=== PATIENT | male | born 1970 | race American Indian/Alaskan Native ===

== ENCOUNTER 2017-08-16 14:05 | Inpatient (IN) | payer OTHER ==
[~2017-08-16] VITALS: Ht 175.3 cm; Wt 66.2 kg
--- NOTE | 2017-08-16 17:38 | NUR ---
PATINT GIVEN 10 MG IV VALIUM AT THIS TIME FOR A RASS OF +1. PATIENT PULLING AT IV SITES AND TRYING TO PULL THEM OUT, WELL TRYING TO PLACE THE DIFFERENT CORDS AND SP02 MONITOR "OVER ON THAT COUNTER OVER THERE." PATIENT RE-ORIENTED AND INFORMED OF REASONS WHY HE IS IN HOSPITAL, AND PLAN OF CARE. PT INFORMED THAT HE HAD A SEIZURE TODAY. PT IS SOMEWHAT TRUTHFUL WITH HOW MUCH ETOH HE DRINKS/DAY. PT'S GIRLFRIEND/EX-GIRLFRIEND STATES HE DRINKS ANYWHERE FROM 16-20 16 OZ BEERS/DAY. SHE STATES HE CALLED HER TODAY AND SAID HE WAS OUT OF MONEY AND BEER AND SHE KNEW HE NEEDED SOME. SHE PICKED HIM UP AND PROVIDE HIM WITH FOUR BEERS, WHICH HE DRANK. SHORTLY AFTER THIS IS WHEN HE HAD HIS SEIZURE. SP02 IS 95% ON ROOM AIR AT HIS TIME. PT IS VISIBLY SHAKY WITH HIS ARMS EXTENDED. MULTIPLE BRUISES NOTED TO PT'S ARMS AND BACK AREA. PT NOTED TO HAVE A LOW PLATELET COUNT ON LABS. CONTINUE TO MONITOR CLOSELY.
--- NOTE | 2017-08-16 18:26 | NUR ---
PT GIVEN 60 MG PHENOBARBITAL AT THIS TIME. PT STARTING TO DOZE OFF IN BED. PT STILL PULLING AT CLOTHING AND RAILING SOME BUT LESS THAN HE WAS EARLIER. CURRENTLY HIS RASS IS -1. HEART RATE 85, SP02 96% ON ROOM AIR. HOB AT 45 DEGREES. PT STARTED ON 40 MEQ POTASSIUM. 3 GM IV MAG FINISHED. D5 LR AT 125 ML/HR.
--- NOTE | 2017-08-16 19:55 | NUR ---
SHIFT REPORT RECEIVED FROM ATILIO HARRIS. PT IS CURRENTLY AWAKE, RN ASSISTED HIM TO USE URINAL, VOIDED 700ML. PT APPEARS ANXIOUS, IS PLAYING WITH CALL LIGHT AND REMOTE. ORIENTED TO SELF AND SURROUNDINGS. PRN VALIUM GIVEN FOR RASS+1. PT NOW WATCHING TV, APPEARS MORE AT EASE, WILL CONTINUE TO MONITOR.
--- NOTE | 2017-08-16 20:15 | NUR ---
PT REMAINS ANXIOUS, RASS +1, PRN VALIUM GIVEN. ASSESSMENT COMPLETED. PT IS CONFUSED TO EVENT AND DATE, BUT IS ORIENTED TO SELF AND SURROUNDINGS. DENIES PAIN AND NAUSEA. LUNGS SOUND CLEAR, SLIGHTLY DIM IN BASES, RA. HR REGULAR. BOWEL TONES ACTIVE. SKIN HAS SCATTERED BRUISES AND SCABS, APPEARS JAUNDICED. ARMS APPEAR SHAKY. IV PATENT, INFUSING WNL. PT IS WITHIN VIEW OF NURSES' STATION AND HAS CALL LIGHT IN HIS LAP. WARM BLANKET PROVIDED PER REQUEST, WILL CONTINUE TO MONITOR.
--- NOTE | 2017-08-16 21:35 | NUR ---
NOTICED THAT PT WAS STARTING TO MOVE AROUND IN BED AND PULLING OFF BLANKETS. ASKED PT IF HE NEEDED TO USE THE BATHROOM AND HE STATED YES. PT INCONTINENT OF URINE, WAS ABLE TO CATCH SOME OF IT IN URINAL. PT THEN MEDICATED WITH PRN VALIUM FOR RASS +1. PLACED [facility] PER ORDER AND THEN PT STATED "I HAVE TO GO TO THE BATHROOM" AGAIN. PT INCONTINENT AGAIN, CAUGHT SOME IN URINAL. ATTENDS AND CHUX PLACED UNDER PT. PT NOW APPEARS TP BE RESTING COMFORTABLY, WILL CONTINUE TO MONITOR.
--- NOTE | 2017-08-16 22:21 | NUR ---
PT HAD BEEN GIVEN SCHDULED VALIUM, HOWEVER HE STILL REMAINS ANXIOUS. ASSISTED PT TO USE URIANL, VOIDED 600ML. SPOKE TO DR. LENTZ WHO STATES HE WILL TAKE A LOOK AT THE ORDERS AND MAKE CHANGES.
--- NOTE | 2017-08-16 22:27 | NUR ---
PT REMAINS ANXIOUS RASS +1, PRN VALIUM GIVEN AT THIS TIME.
--- NOTE | 2017-08-16 22:49 | NUR ---
DR. LENTZ CHANGED SCHEDULED VALIUM TO 20MG IV Q4, IN TO ADMINSITER THIS, HOWEVER SINCE I HAD JUST GIVEN PRIOR PRN DOSE OF 10MG, I ONLY GAVE 10MG AT THIS TIME. DR. LENTZ ALSO CHANGED THE SCHEDULED PHENOBARBITOL TO 90MG Q4. ADMINISTERED AT THIS TIME. PT IN VIEW OF NURSES' STATION, WILL CONTINUE TO MONITOR.
--- NOTE | 2017-08-17 00:32 | NUR ---
PT HAD BEEN SLEEPING SOUNDLY, WOKE AND APPEARED AGITATED, PULLING OFF COVERS. ASSISTED HIM TO USE URINAL, HE HAD BEEN INCONTINENT OF LARGE AMOUNT OF URINE. ATTEMPTED TO PUT HIM ON BEDPAN BECAUSE HE STATED HE NEEDED TO HAVE BM, BUT HE DID NOT STAY ON IT MORE THAN 1 MINUTE AND WANTED IT GONE. PT RESISTS ASSISTANCE WHILE WE WERE CHANGING BED LINENS. RASS +2, 20MG PRN IV VALIUM ADMINISTERED. ASSESSMENT COMPLETED. NO OTHER CHANGES FROM PREVIOUS ASSESSMENT. PT THEN STATES HE NEEDS TO USE BATHROOM AGAIN, VOIDED 400ML INTO URINAL, BLADDER SCAN AFTER VOID SHOWED: 237ML. PT REMAINS AWAKE AND RETLESS. BED ALARM ON FOR SAFETY, WILL CONTINUE TO MONITOR.
--- NOTE | 2017-08-17 00:45 | NUR ---
AFTER 30 MINUTES SINCE LAST PRN DOSE, PT REMAINS RESTLESS WITH RASS+1. PT SQUIRMING IN BED AND PULLING AT GOWN AND SHEETS. 20MG PRN IV VALIUM ADMINISTERED.
--- NOTE | 2017-08-17 01:20 | NUR ---
PT REMAINS RESTLESS, PULLING ON SHEETS AND BED RAILS, 20MG PRN VALIUM ADMINISTERED AT THIS TIME.
--- NOTE | 2017-08-17 02:10 | NUR ---
IN TO GIVE 0200 PHENOBARBITOL AND VALIUM, NOTICED THAT IV IN RIGHT AC WAS LEAKING, D/C'D, CATHETER TIP INTACT. OPERATIONS OFFICER AFLOAT MALENA STARTED A NEW 20G IV IN RIGHT HAND, WE HAD TO HOLD ARM DOWN SO THAT PT WOULD STAY STILL, BUT OTHERWISE HE TOLERATED IT WELL. PT REMAINS RESTLESS, WILL CONTINUE TO MONITOR.
--- NOTE | 2017-08-17 02:44 | NUR ---
CALLED TO UPDATE DR. LENTZ ABOUT PT AND INFORM HIM THAT DESPITE MEDICATING PT, PT REMAINS RESTLESS. NEW ORDERS RECEIVED: 1. ONE TIME DOSE OF 40MG IV PHENOBARBITOL NOW. 2. 130MG IV PHENOBARBITOL Q1 PRN FOR RASS >0 3. INCREASE SCHEDULED PHENOBARBITOL FROM 90MG TO 130MG Q4. ORDER READ BACK AND VERIFIED BY DR. LENTZ.
--- NOTE | 2017-08-17 02:49 | NUR ---
PT INCONTINENT OF URINE, PERICARE AND NEW ATTENDS PROVIDED.
--- NOTE | 2017-08-17 03:40 | NUR ---
PRN 20MG IV VALIUM GIVEN FOR RASS SCORE OF +1. WILL CONTINUE TO MONITOR.
--- NOTE | 2017-08-17 03:59 | NUR ---
PT CURRENTLY SLEEPING, LIGHTLY SNORING. RR:20, HR:85, SPO2:94% ON RA. BED ALARM REMAINS ON FOR SAFETY, WILL CONTINUE TO MONITOR.
--- NOTE | 2017-08-17 04:47 | NUR ---
PT WOKE AT 0430 AND STARTED PULLING OFF BLANKETS AND PULLING ON BEDRAILS. PRN PHENOBARBITOL GIVEN FOR RASS OF +1. PT FOUND TO BE INCONTINENT OF LARGE AMOUNT OF URINE, BED LINEN CHANGED, LAURI- CARE DONE, NEW CHUX AND ATTENDS IN PLACE. AFTER MOVING PT IN BED HE APEARRED MORE AGITATED AND RESTLESS, RASS +2, PRN VALIUM GIVEN. SEIZURE PADS PLACED ON BED FOR SAFETY, BED ALARM REMAINS ON. WILL CONTINUE TO MONITOR.
--- NOTE | 2017-08-17 05:34 | NUR ---
PT WAS SLEEPING WELL UNTIL LAB CAME TO DRAW SAMPLE, THEN PT RESTLESS WITH RASS OF +1, SCHEDULED PHENOBARBITOL GIVEN NOW. WILL CONTINUE TO MONITOR.
--- NOTE | 2017-08-17 06:52 | NUR ---
PT SLEEPING, NO APPARENT DISTRESS. RR:19, SPO2 98% ON RA. HR:86.
--- NOTE | 2017-08-17 07:20 | NUR ---
REPORT RECEIVED FORM ATILIO CROFT. PATIENT'S ATTENDS CHANGED AT THIS TIME. PT HAD A VERY LARGE INCONTINENT VOID. U/S HERE TO PERFORM ABDOMINAL U/S. PT RASS IT +2 AND PRN VALIUM TO BE GIVEN.
--- NOTE | 2017-08-17 08:49 | NUR ---
PATIENT SLEEPING AT THIS TIME. RR EVEN AND UNLABORED. SP02 98% ON ROOM AIR AND RR 18. HR 84. SIDE RAILS UP FOR SAFETY AND SEIZURE PADS ON BED. BED IN LOW POSITION WITH BED ALARM ON. MONITORING PATIENT CLOSELY.
--- NOTE | 2017-08-17 09:23 | NUR ---
DR. LENTZ IN ROOM EVALUATING PATIENT. PATIENT CONTINUES TO SLEEP AT THIS TIME AND APPEARS CALM AND COMFORTABLE. NO CHANGES BEING MADE TO MEDICATION DOSES AT THIS TIME BUT WILL CONTINUE TO MONITOR CLOSELY. CONDOME CATHETER TO BE POTENTIALLY PLACED ON PATIENT.
--- NOTE | 2017-08-17 09:48 | NUR ---
CONDOM CATHETER PLACED AT THIS TIME. PT TOLERATED FAIR, AND WAS RESISTING NURSING STAFF QUITE A BIT. PT DUE FOR SCHEDULED MEDICATIONS. CONTINUE TO MONITOR. LARGE INCONTINENT VOID CHANGED.
--- NOTE | 2017-08-17 09:56 | NUR ---
PATIENT GIVEN SCHEDULED PHENOBARBITAL AT THIS TIME. PT IS DISORIENTED AND STATES HE IS AT "[facility]" AND THEN STATES HE IS AT "THE CLINIC." CONTINUE TO MONITOR CLOSELY.
--- NOTE | 2017-08-17 10:16 | NUR ---
SCHEDULED VALIUM GIVEN AT THIS TIME. PT PULLING AT MONITOR LEADS, PULLING AT BLANKETS AND TANGLING SELF IN BLANKETS. PT HALLUCINATING AND TALKING OUT LOUD WITH GARBLED TALK. SP02 99% ON ROOM AIR, RR 22. LAST BP 119/78. HEART RATE IN THE 70s. CONTINUE TO MONITOR.
--- NOTE | 2017-08-17 12:37 | NUR ---
PICC RN HERE TO PERFORM MIDLINE. PATIENT TOLERATED THIS FAIR, PRN PHENOBARBITAL GIVEN PRIOR TO MIDLINE BEING PLACED. PT REMAINS CONFUSED, HALLUCINATING AND GRABBING AT THINGS IN THE AIR THAT ARE NOT THERE. HEART RATE IN THE 70-80s, SP02 99% ON ROOM AIR. RR 17 AT THIS TIME. PT IS NOW RESTING WELL AND EVEN SNORING OCCASIONALLY. CONTINUE TO MONITOR.
--- NOTE | 2017-08-17 14:21 | NUR ---
PATIENT HAD STILL NOT VOIDED SINCE PLACING CONDOM CATHETER. PT BLADDER SCANNED SEVERAL TIMES FOR AROUND 556 ML. DURING SCANNING OF BLADDER, PT NOTED TO START VOIDING AND VOIDED APPROX 300 ML. WILL CONTINUE TO MONITOR FOR RETENTION. PT MORE AWAKE AND RESTLESS NOW AT THIS TIME. SCHEDULED PHENOBARBITAL GIVEN. PATIENT STATES, "I'M TRYING TO FIND MY UNDERWEAR" HE PULLS AT THE SIDE RAILS. PT NOTED TO BE ALSO GRABBING FOR THINGS IN THE AIR THAT AREN'T THERE AND PULLING AT CORDS. CONTINUE TO MONITOR CLOSELY.
--- NOTE | 2017-08-17 14:56 | NUR ---
PATIENT ADMITTED AT HIGH RISK FOR MALNUTRITION DUE TO POOR DIET DUE TO CHRONIC ETOH CONSUMPTION OF 18 16-OZ. BEERS DAILY. PATIENT'S BMI IS 22. PATIENT IS NPO, RECEIVING IV FLUIDS WITH D5 LR, THIAMINE, FOLIC ACID, AND MVI. LIVER ENZYMES ARE ELEVATED. PATIENT GOING THROUGH ETOH WITHDRAWL AND IS SEDATED. NO NUTRITION INTERVENTION APPROPRIATE AT THIS TIME. WILL CONTINUE TO MONITOR.
--- NOTE | 2017-08-17 16:01 | NUR ---
PATIENT GIVEN BED BATH AT THIS TIME. PT TOLERATED FAIR AND WAS VERY RESISTIVE TO BEING MOVED AROUND IN THE BED. PT'S WEIGHT TODAY IS 145.9 LBs. CONTINUE TO MONITOR CLOSELY.
--- NOTE | 2017-08-17 17:24 | NUR ---
PATIENT'S COUSIN LEXA CAME AND CHECKED ON PATIENT BUT DID NOT STAY MORE THAN FIVE MINUTES. PATIENT SLEEPING AT THIS TIME. CONTINUE TO MONITOR.
--- NOTE | 2017-08-17 19:13 | NUR ---
PATIENT GIVEN SCHEDULED 1800 DOSE OF PHENOBARBITAL AT THIS TIME. PT NOW AWAKE, BUT WAS NOT AWAKE AT 1800. PATIENT NOW SAYING "I NEED TO GO HOME AND CLEAN." PT NOTED TO BE PULLING MONITOR LEADS OFF OF CHEST. SP02 IS 100% ON ROOM AIR AT THIS TIME. LAST BP 107/78. PT NOTED TO HAVE VOIDED IN CONDOM CATHETER APPROX 200-300 ML. CONTINUE TO MONITOR CLOSELY. REPORT TO [employer] CUSTODIAN RNs.
--- NOTE | 2017-08-17 19:46 | NUR ---
REPORT RECIEVED FROM VIC TRIMBLE. PT RESTLESS DESPITE BEING GIVEN PHENOBAL. GIVEN 20MG VALIUM IV. PT DID C/O PAIN AT LT ARM SITE, SITE FLUSHES WELL BUT DID GIVE REMAINING DOSE AT MID LINE SITE STOPPING IVF WHILE VALIUM GIVEN. DID SWAB MOUTH BUT PT DID RESIST AT FIRST.
--- NOTE | 2017-08-17 21:28 | NUR ---
HAD BEEN RESTFUL, NOW RESTLESS AND PULLING AT THINGS, GIVEN 20MG VALIUM IV.
--- NOTE | 2017-08-17 23:55 | NUR ---
PT IS ASLEEP AND SNORING. SAT 98%.
--- NOTE | 2017-08-18 01:42 | NUR ---
PT NOW AWAKE AND RESTLESS, PULLING AT LINENS, RESISTING CARE. GIVEN 20MG VALIUM IV. DID COUGH VIGOROUSLY.
--- NOTE | 2017-08-18 02:51 | NUR ---
HAS BEEN MORE RESTFUL. ATTEMPTED ORAL CARE, PT STILL RESISTS. PT HAS VERY BAD BREATH.
--- NOTE | 2017-08-18 03:30 | NUR ---
HAS HAD SEVERAL EPISODES OF SLEEP APNEA. 02 2L NC APPLIED WITH GOOD EFFECT.
--- NOTE | 2017-08-18 04:39 | NUR ---
PT CONT TO SLEEP. 02 DEC TO 1L NC, SATS WERE 100% ON 2 L.
--- NOTE | 2017-08-18 06:14 | NUR ---
AWAKE, PLEASANT BUT STILL HALUCINATING AND CONFUSED. WAS SEEING DOGS IN ROOM. WILL OCC PICK AT COVERS. 02 OFF AND SATS 100% ON RA. ATTENDS CHANGED HAD LEAKED SMALL AMT URINE AROUND CONDOM CATH. PT RESISITS BEING TURNED, AND OTHER CARES.
--- NOTE | 2017-08-18 08:00 | NUR ---
PT WITH EYES OPENED BUT SLURRING HIS WORDS. PT COOPERATIVE WITH ORAL CARE AND IS CALM THIS MORNING. ASSESSMENT COMPLETED, RESTING AND WATCHING TV. LUNGS CLEAR WITH FEW COARSE SOUNDS IN LEFT BASE. SATS 100% ON RA. REDD HOSE IN PLACE BILAT.
--- NOTE | 2017-08-18 09:33 | NUR ---
PT PULLING AT PANCHAL CATHETER AND SLURRING HIS WORDS. MEDICATED WITH VALIUM 20 MG IV. NAILS CLEANED AND SPONGE BATH GIVEN, SHAMPOO CAP USED TO WASH HAIR, PT SHAVED AMD NINA WELL. PT RESTING ON RIGHT SIDE WITH PILLOW TO BACK. PT SLEEPING WITH HOB ELEVATED, DR. LENTZ IN TO ASSESS PT. BLADDER SCANNED D/T LOW URINE OUTPUT, 413 MLS URINE IN BLADDER. IVF DECREASED TO 85 MLS/HR PER DR. BEARD. FRIEND HERE FOR UPDATE ON PT.
--- NOTE | 2017-08-18 11:16 | NUR ---
PT PULLING ON MONITOR WIRES AND CONDOM CATH OFF. PT INCONT OF URINE, LINEN CHANGED AND ATTENDS IN PLACE. PT NON COMPLIANT FOR IV START. TWO FAILED ATTEMPS BY Angel WARE RN. 20 GAUGE INSERTED IN LEFT HAND BY Ronaldo MAKI RN. PT MEDICATED WITH PHENOBARBITAL 90 MG GIVEN IV AND ALSO VALIUM 15 MG IV. PT NOW RESTING WITH EYES CLOSED. HOB ELEVATED AND SATS 98% ON RA.
--- NOTE | 2017-08-18 12:12 | NUR ---
STARTED BY Ronaldo MAKI RN
--- NOTE | 2017-08-18 12:14 | NUR ---
PT REMAINS ASLEEP WITH HOB ELEVATED - REU, SATS 100% ON RA.
--- NOTE | 2017-08-18 13:40 | NUR ---
PT NOT AWAKE, HIS BRO SHADIA WAS JUST LEAVING AND ASKED FME TO PRAY FOR HIS BROTHER. HE MADE A COMMENT ABOUT ALCOHOL, WE BOTH AGREED IST CAN BE A DEMON. HE IS VERY CONCERNED FOR HIS BROTHER. I AGREED TO PRAY, AND HE SHOOK MY HAND AND THANKED ME. WILL FOLLOW NEEDED
--- NOTE | 2017-08-18 14:10 | NUR ---
PT SLEEPING - SATS 100% ON RA. I/O'S COMPLETED.
--- NOTE | 2017-08-18 14:57 | NUR ---
PT INCONT OF URINE. ATTENDS CHANGED AND PT ATTEMPTED TO USE URINAL BUT UNABLE TO AT THIS TIME.
--- NOTE | 2017-08-18 15:45 | NUR ---
PT ABLE TO VOID IN URINAL WITH ASSIST, VOIDED 350 MLS ORANGE COLORED URINE. PT PULLING AT COVERS AND TRYING TO GET LEGS OUT OF BED. MEDICATED WITH VALIUM 15 MG IV.
--- NOTE | 2017-08-18 17:00 | NUR ---
MONITOR DC'D. PATIENT IS W/O C/O.
--- NOTE | 2017-08-18 17:05 | NUR ---
PT RESTING WITH HOB ELEVATED, AWAKENS TO VOICE AND FOLLOWS SOME DIRECTIONS.
--- NOTE | 2017-08-18 17:27 | NUR ---
FAMILY MEMBERS IN TO VISIT WITH PT.
--- NOTE | 2017-08-18 18:05 | NUR ---
PT TRYING TO CRAWL OUT OF BED. OFFERED URINAL BUT REFUSED AT THIS TIME. MEDICATED WITH PHENOBARB 90 MG AND VALIUM 15MG IV. PT PULLED UP IN BED WITH 2 PERSON ASSIST AND HOB ELEVATED - KNEES ALSO ELEVATED. PT RESTING WITH EYES CLOSED.
--- NOTE | 2017-08-18 19:47 | NUR ---
REPORT RECIEVED FROM DAY SHIFT. PT CURRENTLY SLEEPING/SEDATED. DID NOT AWAKEN WHEN PUPILS CHECKED, OTHERWISE ALSO DID NOT TRY TO AWAKEN PT. ATTENDS DRY.
--- NOTE | 2017-08-18 22:09 | NUR ---
BECAME AGITATED AFTER BEING TURNED. PT HAD VOIDED BUT WAS CLENCHING WET ATTENDS. GIVEN SCHEDULED PHENOBARBITAL AND PT WAS CHANGED. CONT TO BE AGITATED AND GIVEN 15MG VALIUM IV. NOW QUIETER.
--- NOTE | 2017-08-18 23:03 | NUR ---
CONT TO BE RESTLESS, PULLING AT COVERS AND TALKING. CONT TO HALUCINATE. GIVEN 15MG VALIUM IV.
--- NOTE | 2017-08-19 00:08 | NUR ---
IS NOW SLEEPING.
--- NOTE | 2017-08-19 02:30 | NUR ---
PT RESTLESS, INC OF URINE. WAS GIVEN PHENOBARB PRIOR TO ATTENDS BEING CHANGED. PT RESISTS TURNING VERY STRONGLY. AFTERWARD PT WAS A LITTLE MORE COOPERATIVE, WAS ABLE TO TAKE SMALL SIP WATER. THEN BECAME RESTLESS PULLING AT GOWN. GIVEN 15MG VALIUM IV. DID C/O BURNING WITH URINATION WHEN URGED TO USE URINAL.
--- NOTE | 2017-08-19 04:26 | NUR ---
SLEEPING AT THIS TIME.
--- NOTE | 2017-08-19 06:33 | NUR ---
PT RESTLESS, INC OF URINE BUT DID VOID MORE IN URINAL. BED CHANGED, PT NOT RESISTIVE BUT IS STILL VERY CONFUSED.
--- NOTE | 2017-08-19 07:59 | NUR ---
IV SITE IN LEFT HAND PAINFUL WHEN FLUSHING, DC'D WITH CATH INTACT.
--- NOTE | 2017-08-19 08:50 | NUR ---
PT SLEEPING THIS A.M. AND DR. LENTZ IN TO ASSESS PT. PT RESTING AND AWAKENS ON HIS OWN. ASSESSMENT COMPLETED. CONTINUE TO REORIENT PT. STATES HE'S AT HIS FRIENDS HOUSE. PT ALSO STATES "I HAVE ANXIETY AND I TAKE SOMETHING FOR IT", WHEN ASKED IF HE NEEDS SOMETHING NOW HE STATES "NO". WHEN ASKED IF HE WILL LET ME KNOW WHEN HE NEEDS SOMETHING HE STATES "YES". PT FALLS ASLEEP EASILY.
--- NOTE | 2017-08-19 10:12 | NUR ---
PT BP IS LOW, RN IS AWARE. PT IS SLEEPING AT THIS TIME. CALL LIGHT IS IN REACH.
--- NOTE | 2017-08-19 10:20 | NUR ---
DR LENTZ NOTIFIED OF SOFT BP'S 83-87/51-56, MAP 59-62. HR 80'S. RR NONLABORED SATS 95% ON RA, PATIENT IN NO DISTRESS. ORDER FOR NS 250CC IV BOLUS.
--- NOTE | 2017-08-19 10:27 | NUR ---
NS 250CC IV BOLUS INFUSING WITHOUT DIFFICULTY. PATIENT SLEEPING QUIETLY, NO DISTRESS.
--- NOTE | 2017-08-19 10:37 | NUR ---
NS 250CC BOLUS INFUSED. BP 90/54 (52) WILL CONT TO MONITOR. UPDATE TO BRANDIE TRIMBLE.
--- NOTE | 2017-08-19 11:03 | NUR ---
PT SLEEPING AND SATS DECREASED TO 77% ON RA. CPAP PLACED ON PT, SATS NOW 98%. R.T. NOTIFIED.
--- NOTE | 2017-08-19 12:47 | NUR ---
PT RESTING IN BED QUIETLY ON BIPAP. OXYGEN SATURATION 99%. PT REPOSITIONS EXTREMITIES SLIGHTLY. NO AGGITATION AT THIS TIME.
--- NOTE | 2017-08-19 13:53 | NUR ---
PT SLEEPING AT 1200, ASSESSMENT COMPLETED. REMAINS ON BIPAP, RESTING WELL.
--- NOTE | 2017-08-19 13:56 | NUR ---
BIPAP OFF AT THIS TIME. BLADDER SCANNED FOR OVER 500 MLS. PT STATES NOT HAVING TO PEE YET.
--- NOTE | 2017-08-19 14:20 | NUR ---
PT WANTED TO STAND TO VOID. TRIED TO SIT PT ON EDGE OF THE BED BUT PT UNABLE TO SIT UP STRAIGHT. PT BACK TO BED AND WAS ABLE TO VOID 450 MLS ORANGE COLORED URINE AND IS RESTING WITH HOB ELEVATED.
--- NOTE | 2017-08-19 14:26 | NUR ---
PT ASLEEP ON C-PAP. HIS BROTHER REQUESTED I PRAY FOR PT DAILY. I ENTERED THE , VOICED A SILENT PRAYER FOR PT. WILL CONTINUE TO FOLLOW
--- NOTE | 2017-08-19 15:37 | NUR ---
PT SLEEPING WITH SATS 97% ON RA. RESP 20
--- NOTE | 2017-08-19 19:30 | NUR ---
REPORT RECEIVED RACHELL DIEGO RN. PT RESTING INBED, RESP EVEN AND UNLABORED.
--- NOTE | 2017-08-19 20:15 | NUR ---
PT HAS GROWN RESTLESS AND AGITATED, PULLING AT MONITOR CORDS AND IV LINE. ASSESSMENT DONE, 10 MG IV VALIUM GIVEN.
--- NOTE | 2017-08-19 21:31 | NUR ---
PT HAS BEEN PULLING SEIZURE PADS OFF RAILS, PULLING AT IV TUBING AND MONITOR CORDS. CHEWING ON MONITOR CORD "WOW THIS IS REALLY CHEWY". WHEN ASKED HE STATES HE IS AT HIS DADS HOUSE, ASKED WHERE HES GOING PT STATES "RUTH GOT TO GET UP TO PAINT THIS HOUSE". 10MG IV VALIUM GIVEN FOR RESTLESSNESS.
--- NOTE | 2017-08-20 00:03 | NUR ---
PT PULLING AT LEADS AND IV TUBING, PUT PT IN SCRUB TOP, INC LG AMOUNT OF URINE LAURI CARE DONE AND LINEN CHANGED AND PT REPOSITIONED UP IN BED. 10MG IV VALIUM GIVEN.
--- NOTE | 2017-08-20 01:30 | NUR ---
PT HAS BEEN RESTLESS AND PUTLLING AT LINES AND IV TUBING, ATTEMPTING TO BITE THEM AT THIS. HAS BEEN REQUIRING PRN VALIUM APPROX EVERY ONE TO TWO HOURS. INC URINE, CHANGED, LAURI CARE DONE AND PT REPOSITIONED UP IN ED.
--- NOTE | 2017-08-20 03:07 | NUR ---
PT CALM AND RESTING IN BED, RR 80'S.
--- NOTE | 2017-08-20 11:07 | NUR ---
PT HAD BEEN VERY RESTLESS AND WANTING TO GET UP AND GO HAVE A BEER AND GO TAKE A SHOWER. PT WAS TRYING TO SQUARM OUT OF THE BED BUT WAS UNABLE TO COMPLETE THE TASK THIS AM. PT SAT TO THE EDGE OF THE BED WAS UNSTEADY YO GET HIS BALANCE, BUT ONCE OBTAINED HE WAS ABLE TO GET OUT OF BED TO THE CHAIR. PT IS LESS RESTLESS IN THE CHAIR AT THIS TIME.
--- NOTE | 2017-08-20 12:20 | NUR ---
PT REMAINS UP IN THE CHAIR, BECOMING RESTLESS AND PULLING AT THE BLANKETS AT THIS TIME. FREFERNANDO INTO SEE HIM AT THIS TIME.
--- NOTE | 2017-08-20 14:13 | NUR ---
PT REMAINS UP IN THE CHAIR, ATTENDS CHACKED AND PT REMAINS DRY AT THIS TIME.
--- NOTE | 2017-08-20 14:19 | NUR ---
MET WITH PT'S KANU AND NORI. THEY CAME FOR LUNCH, AND THEN PLAN ON VISITING PT. I REMINDED HIM THAT HE ASKED ME TO PRAY FOR PT EVERYDAY, WHICH I HAVE AND KANU RENO THANKED ME. WILL CONTINUE TO FOLLOW NEEDED
--- NOTE | 2017-08-20 14:29 | NUR ---
CARE CONFERENCE PT IS SLEEPING SITTING UP IN THE CHAIR. VIELKA BELTRÁN RN (PRIMARY NURSE) MYSELF CASE MANAGEMENT PRESENT. PT CONT TO BE AGGITATED WHEN AWAKE, HE WANTS A BEER AND SOME WHISKEY. STILL HAVING TREMORS BUT THEY ARE GRADUALLY IMPROVING. DR LENTZ DID WRITE FOR CLEAR LIQ. PT STILL NEEDING IV BENZODIAZEPINES AND BARBITURATES. WILL CONT TO FOLLOW PT DURING HIS STAY IN THE HOSPITAL.
--- NOTE | 2017-08-20 14:37 | NUR ---
PT BP LOW DR LENTZ HERE IN DEPARTMENT NEW ORDERS RECEIVED STARTED 500 LITER NS BOULS AT THIS TIME.
--- NOTE | 2017-08-20 14:41 | NUR ---
PT STATED HE HAD TO VOID, BUT PT IS NOT ABLE TO VOID AT THIS TIME, PULLING AT ATTENDS AND FUSSING WITH MONITOR CORDS.
--- NOTE | 2017-08-20 14:50 | NUR ---
PT AWAKE AND NOW PULLING AND FUSSYING WITH BLANKETS AND LINES.
--- NOTE | 2017-08-20 15:00 | NUR ---
PT BACK TO BED AT THIS TIME TWO PERSON ASSISTANCE, BED ALARM AND SIDE RAIL X4, WITH SEZIURES PADS INPLACE.
--- NOTE | 2017-08-20 16:29 | NUR ---
PT RAMINS IN BED ASLEEP AT THIS TIME APPEARS COMFORTABLE AT THIS TIME.
--- NOTE | 2017-08-20 18:36 | NUR ---
PT AWAKEN FOR DINNER, PT WAS FEED AND HE DID WELL. FAMILY AT THE BEDSIDE. PT AWAKE AND VISITING WITH THEM. TALKING AND JOKING WITH THEM.
--- NOTE | 2017-08-20 19:40 | NUR ---
REPORT RECEIVED FROM VIELKA TRIMBLE. PT IS RESTING IN BED, ASLEEP WITH RESP EVEN AND UNLABORED. HR 70'S, RR 16.
--- NOTE | 2017-08-20 20:12 | NUR ---
PT AWAKENS WITH STERNAL RUB FROM RT PARISA, PT IS DROWSY, ABLE TO STAY AWAKE WITH EYES OPEN. PT IS NOT ORIENTED TO PLACE, DATE, OR EVENT. PT IS ASKING WHERE HIS SISTER TRINO IS. FINE HAND TREMORS PRESENT. LUNGS CLEAR, DIMINISHED THROUGHOUT ALL LOBES, SPO2 100% ON ROOM AIR. PT REFUSES CPAP. BANANNA BAG INFUSING MIDLINE WNL AT 85 ML/HR. ATTENDS IN PLACE, PT DENIES NEED TO USE RESTROOM AT THIS TIME. BED ALARM IS SET. CURTAIN OPEN FOR VIEW FROM NURSES STATION.
--- NOTE | 2017-08-20 20:30 | NUR ---
IN PT ROOM TO CHANGE ATTENDS W CHRISTINE PAN AND RN FANG ASSIST. PT IS INCOMPREHENSIBLE WHEN ASKED ORIENTATION QUESTIONS, AWAKE, DROWSY. PT DOES NOT FOLLOW COMMANDS WELL, RESISTS TURNING WHEN CHANGING ATTENDS. PT HAD LARGE UNMEASURED INCONTINENT VOID. BED ALARM SET, IVF INFUSING, PT ON ROOM AIR, WITH CURTAIN OPEN FOR CLOSE MONITORING FROM NURSES STATION FOR SAFETY.
--- NOTE | 2017-08-20 21:20 | NUR ---
PT SLEEPING AT THIS TIME, EYES CLOSED, BREATHING NON-LABORED, RR 15, SPO2 95% ON ROOM AIR. BED ALARM SET.
--- NOTE | 2017-08-20 21:59 | NUR ---
PT AWAKE AT THIS TIME, CONTINUES TO BE DROWSY AND INCOMPREHENSIBLE. PT DOES NOT APPROPRIATELY ANSWER OTHER QUESTIONS OTHER THAN NAME AND OR FOLLOW COMMANDS. PT LYING IN BED AT THIS TIME, MOVING FINGERS OVER ATTENDS MATERIAL, BED ALARM REMAINS IN PLACE. MID LINE FLUSHED WNL, BLOOD RETURN. CURTAIN OPEN FOR CLOSE MONITORING.
--- NOTE | 2017-08-20 22:23 | NUR ---
IN PT ROOM WITH CHRISTINE PAN, CHANGED ATTENDS, PT SATURATED CHUX AND ATTENDS. PT NOT FOLLOWING COMMANDS AT THIS TIME, LAUGHING, STATES "THERES PINK HATS OVER THERE". ORIENTED PT TO ROOM. BED ALARM SET, PT GIVEN WARM BLANKET.
--- NOTE | 2017-08-20 22:50 | NUR ---
PTS LEGS OVER SIDE RAIL, ATTENDS SATURATED, CHANGED ATTENDS AND CHUX WITH CHRISTINE PAN. PT IS AWAKE, DROWSY, REACHING DOWN ATTENDS, NOT FOLLOWING COMMANDS. BED ALARM SET, LIGHTS OFF IN ROOM. PTS EYES CLOSED NURSING STAFF EXITS ROOM.
--- NOTE | 2017-08-20 23:20 | NUR ---
IV PUMP BEEPING IN PT ROOM, PT SLEEPING, AWAKENS TO RN VOICE, INSTRUCTED PT TO STRAIGHTEN RIGHT ARM, PT DOES NOT FOLLOW COMMAND, MANUALLY STRAIGHTENED ARM. PTS LUNGS CLEAR THROUGHOUT ALL LOBES, BOWEL TONES ACTIVE. PT SPEECH INCOMPREHENSIBLE, ORIENTED ONLY TO PERSON. BED ALARM SET, LIGHTS OFF IN ROOM, IVF INFUSING MIDLINE WNL.
--- NOTE | 2017-08-21 01:00 | NUR ---
PT CALLING OUT "BATHROOM", IN PT ROOM, PT STATES HE DOES NOT HAVE TO GO TO RESTROOM, ATTENDS DRY. PT NOT ORIENTED TO PLACE, EVENT, STATING RN FANG WORKS AT [employer], AND HAS A LOT OF ELECTRONICS IN HERE. BED ALARM SET, LIGHTS OFF IN ROOM. IVF W K INFUSING.
--- NOTE | 2017-08-21 02:11 | NUR ---
CHECKED ON PT, PT SLEEPING EYES CLOSED, RR 17, BREATHING NON-LABORED, LIGHTS OFF IN ROOM, BED ALARM SET.
--- NOTE | 2017-08-21 04:03 | NUR ---
PT AWAKE, DROWSY, HAS BOTH LEGS OVER SIDE RAILING. PT WORDS INCOMPREHENSIBLE, NOT APPROPRIATELY CONVERSING. 3 RN AND ONE BARTENDER ASSIST TO STAND PT WITH MAX ASSIST TO CHANGE SATURATED SCRUB TOP, LINENS, AND ATTENDS. PT NOT ABLE TO FOLLOW COMMANDS TO DRESS OR STAND. PT LYING IN BED, IVF INFUSING WNL, BED ALARM SET.
--- NOTE | 2017-08-21 04:56 | NUR ---
PT SLEEPING, AWAKENS WITH RN TOUCH AND BACK TO SLEEP, DROWSY, BREATHING NON-LABORED, RR 16, HR 77. LUNGS CLEAR, DIMINISHED THROUGHOUT ALL LOBES, HR RHYTHM REGULAR, ABDOMEN SOFT, NON-DISTENDED, BOWEL TONES ACTIVE X 4. PT APPEARS COMFORTABLE, NOT MOVING AROUND IN BED. BED ALARM IN PLACE, LIGHTS OFF IN ROOM, IVF INFUSING MIDLINE WNL.
--- NOTE | 2017-08-21 06:17 | NUR ---
PT IN BED THROUGHOUT SHIFT, ORIENTED ONLY TO SELF AND . PT SPEECH NOT COMPREHENSIBLE, UNABLE TO FOLLOW COMMANDS. PT VERY WEAK, REQUIRING MAX 2 PERSON ASSIST TO STAND. CONTINUES TO BE INCONTINENT OF URINE THROUGHOUT SHIFT, ATTEND AND CHUX IN PLACE W MULTIPLE LARGE VOIDS. BED ALARM IN PLACE THROUGHOUT SHIFT. MIDLINE HAS GOOD BLOOD RETURN AND FLUSHES WELL, IVF INFUSING WNL.
--- NOTE | 2017-08-21 08:29 | NUR ---
PT ASLEEP AT THIS TIME, STTENDS IS DRY AT THIS TIME, PT REPOSITIONED AT THIS BKF ORDERED AT THIS TIME.
--- NOTE | 2017-08-21 09:07 | NUR ---
PT CONTIOUES TO SLEEP TRIED TO WAKE HIM UP WASHED HIS FACE AND THEN HE TELLS ME TO "LET ME SLEEP" CURRENTLY PT IS ASLEEP WITH FAMILY AND FREINDS AT THE BEDSIDE.
--- NOTE | 2017-08-21 10:14 | NUR ---
PT AWAKE AT THIS TIME, FEED BKF, [facility] TALKING WITH STAFF AND FAMILY
--- NOTE | 2017-08-21 11:07 | NUR ---
PT TALKING WITH FAMILY AT THIS TIME. HE DOES MAKE SOME SINCE WHEN TALKING, BUT AT TIMES HE IS TALKING IN CIRCLES.
--- NOTE | 2017-08-21 11:53 | NUR ---
PT WAS TRANSFERED FROM BED TO SHOWER CHAIR VIA TWO PERSON ASSISTANCE, PT WAS THEN SHOWERED. PT THEN RETURNED TO ROOM AND TRANSFERED TO CHAIR AGAIN WITH A TWO PERSON ASSISTANCE. PT BRUSHED HIS OWN TEETH WITH VERBAL CUES. PT IS SITTING UP IN CHCAIR SAFELY WITH CALL LIGHT IN REACH. LINENS WERE CHANGED
--- NOTE | 2017-08-21 12:03 | NUR ---
PT WENT TO THE OWER AND [facility]. PT UP TO THE CHAIR AT THIS TIME, LUNCH ORDERED AT THIS TIME. PT BRUSHED HIS OWN TEETH WITH SOME BLOOD NOTED WITH BRUSHING. DRY ATTENDS INPLACE AT THIS TIME. BEDSIDE TRAY INPLACE TO HELP KEEP PT IN CHAIR, WITH CHAIR ALARM INPLACE.
--- NOTE | 2017-08-21 12:07 | NUR ---
PT APPEARS TO BE ASLEEP AT THIS TIME IN THE CHAIR.
--- NOTE | 2017-08-21 12:47 | NUR ---
PT GIVEN PO MEDS AND DID WELL TAKING THEM AT THIS TIME, TALKING CLEARER AT THIS TIME.
--- NOTE | 2017-08-21 13:39 | NUR ---
PT WAS FEED LUNCH ATE WELL, PT STILL UNABLE TO FEED SELF AT THIS TIME. HAND TO MOUTH CORDATION IS NOT GOOD AT THIS TIME.
--- NOTE | 2017-08-21 14:07 | NUR ---
MET WITH PT FOR THE FIRST TIME TODAY. SITTING IN CHAIR, HE SMILED. NOT YET TOO ALERT OR ORIENTED. RESPONSES TO QUESTIONS ARE SLOW, BUT DELIBERATE. OFFERED HIM DEPT BLANKET HE SAID THAT WOULD BE NICE. HE SEEMED TO BE VERY PLEASED. I TOLD HIM I HAD BEEN PRAYING FOR HIM, HE SMILED. I EXTENDED A BLESSING, WILL CONTINUE TO FOLLOW NEEDED
--- NOTE | 2017-08-21 18:24 | NUR ---
PT TRYED TO STAND TO VOID, BUT UNABLE TO STAND WITH STAFF HELPS VERY UNSTEADY, PT BACK TO THE CHAIR VOIDED IN URINAL AND THEN SAT UP TO EAT DINNER. PT FEEDING SELF WITH HELP FROM NIKOLAS AT TIMES.
--- NOTE | 2017-08-21 19:32 | NUR ---
REPORT RECEIVED FROM VIELKA TRIMBLE. PT IS LYING IN BED WITH EYES CLOSED, RESTFUL, RESP EVEN AND UNLABORED. AWAITING TRANSFER TO MED SURG FLOOR. IN VIEW OF NURSES STATION, BED ALARM ON.
--- NOTE | 2017-08-21 19:40 | NUR ---
REPORT RECEIVED FROM ATILIO HEADLEY IN CCU VIA TELEPHONE. PT TO ARRIVE TO MED SURG VIA HOSPITAL BED, ASSISTANT TO THE PRESIDENT TO BRING PT OVER TO FLOOR.
--- NOTE | 2017-08-21 20:01 | NUR ---
PT TRANSFERRED TO MED SURG FLOOR WITH CHARGE NURSE AND BENCH LATHE OPERATOR, REPORT GIVEN TO EMILEE TRIMBLE. VSS.
--- NOTE | 2017-08-21 20:05 | NUR ---
PATIENT MOVED FROM CCU VIA HOSPITAL BED. PATIENTS BELONGINGS MOVED WITH PATIENT. REPORT TAKEN BY EMILEE TRIMBLE. PATIENT DID NOT AWAKEN DURING TRANSFER. PATIENTS VITALS ARE STABLE. PATIENTS BED ALARM PLACED ON FOR SAFETY. CALL LIGHT IN REACH.
--- NOTE | 2017-08-21 20:22 | NUR ---
PT ARRIVES TO MED SURG FLOOR AT 1950 VIA HOSPITAL BED. PT SLEEPING, AWAKENS TO RN VOICE. PT IS DROWSY, OPENS EYES SLIGHTLY. PERRL. PT IS ORIENTED TO PERSON, , AND YEAR. PT STATES HES "IN MY BEDROOM". REORIENTED PT TO EVENT, DATE, AND TIME. PTS LUNGS CLEAR THROUGHOUT ALL LOBES, HR REGULAR. PT WEAK BILATERALLY UPPER AND LOWER EXTREMITIES. DENIES PAIN. PT NOT ABLE TO ANSWER REGARDING WHETHER HE ATE TODAY, DENIES HUNGER. BED ALARM SET, CALL LIGHT IN REACH. IVF INFUSING WNL IN MIDLINE, LINE FLUSHES WELL, GOOD BLOOD RETURN.
--- NOTE | 2017-08-21 22:15 | NUR ---
PT LYING IN BED, TALKING TO SELF, WORDS INCOMPREHENSIBLE, BED ALARM SET, IVF INSUING. CURTAIN OPEN FOR CLOSE VIEW FROM NURSES STATION.
--- NOTE | 2017-08-22 | NUR ---
IN PT ROOM, PT'S LEGS OVER SIDE RAILS. PT INCONTINENT OF URINE, BED SATURATED, LINENS, GOWN, AND ATTENDS CHANGED. PT IS AWAKE, FLAT AFFECT, NOT ORIENTED TO PLACE, SITUATION, TIME. PT REQUESTING TO BRUSH TEETH. GUMS BLEEDING WITH BRUSHING. IV TUBING RIPPED APART BY PT. NEW IV TUBING INFUSING AT THIS TIME, MIDLINE HAS GOOD BLOOD RETURN, FLUSHES WELL. PT TRYING TO GET OUT OF BED, REQUESTING TO WASH FACE. PT ABLE TO SIT UP IN BED, WEAK. ASSISTED PT W 3PA TO RESTROOM, GAIT UNSTEADY WITH FWW AND MAX ASSIST. PT BACK TO BED AT THIS TIME. BED ALARM SET.
--- NOTE | 2017-08-22 01:38 | NUR ---
PT SLEEPING, BREATHING NON-LABORED, RR 18. LIGHTS OFF IN ROOM. BED ALARM ON.
--- NOTE | 2017-08-22 03:24 | NUR ---
PT SLEEPING AT THIS TIME, EYES CLOSED, VISIBLE CHEST RISE, PT COUGHING OCCASIONALLY, DRY COUGH. CURTAIN OPEN FOR VIEW FROM NURSES STATION, BED ALARM SET.
--- NOTE | 2017-08-22 04:30 | NUR ---
IN PT ROOM TO CHECK ON PT, PT SOAKED WITH URINE THROUGH ATTENDS AND TWO LAURI PADS ONTO CHUX. CHANGED CHUX, DRAW SHEET, AND CLEANED PT. ATTENDS AND LAURI PADS IN PLACE, PT PULLING AT ATTENDS. ASSESSMENT COMPLETE. LUNGS CLEAR, DIMINISHED THROUGHOUT. PT DOES NOT FOLLOW COMMANDS, RESISTING STRAIGHTENING ARM, ARM BOARD IN PLACE FOR IV INFUSION. BED ALARM SET. LIGHTS OFF IN ROOM.
--- NOTE | 2017-08-22 06:00 | NUR ---
PT ATTEMPTING TO CRAWL OUT OF BED, LEGS THROUGH SIDE RAIL. BED, LINENS, AND ATTENDS SATURATED WITH URINE. RN DIEGO ASSIST TO CHANGE PTS LINEN, BED BATH COMPLETE. ATTENDS WITH TWO LAURI PADS AND TWO CHUX UNDER PT. PT GIVEN WARM BLANKET. MIDLINE SITE WNL. BED ALARM SET, CALL LIGHT IN REACH.
--- NOTE | 2017-08-22 06:14 | NUR ---
VITALS AND I&OS DONE AND CHARTED. BEDSIDE TABLE AND CALL LIGHT WITHIN REACH.
--- NOTE | 2017-08-22 06:45 | NUR ---
ATTEMPTED TO AMBULATE THIS SHIFT, REQUIRING 3-4 PERSON MAX ASSIST, PT WEAK ON FEET, DOES NOT FOLLOW COMMANDS WELL. PT IS DROWSY, SLEEPING THROUGHOUT SHIFT, CONTINUES TO PULL ON ATTENDS, RIPPED IV CORD APART, INCONTINENT OF URINE X 4 FOR LARGE VOIDS SATURATING ENTIRE BED. PT BRUSHED TEETH INDEPENDENTLY AT START OF SHIFT WITH BLEEDING. MIDLINE IN PLACE, GOOD BLOOD RETURN FLUSHES WELL. SPEECH INCOMPREHENSIBLE, NOT ORIENTED TO DATE, EVENT, PLACE.
--- NOTE | 2017-08-22 07:43 | NUR ---
PATIENT IN BED ASLEEP. WHITEBOARD UPDATED.
--- NOTE | 2017-08-22 09:09 | NUR ---
bedside report received from Miguelina TRIMBLE. all questions answered. pt sleeping heavily now. will attempt to give morning meds. CNAs report giving him oral care and a bed bath this morning. pt snoring at this time.
--- NOTE | 2017-08-22 09:22 | NUR ---
PT ONLY ORIENTED TO SELF. ABLE TO SWALLOW WATER WITH MAGNESIUM SUPPLEMENT. IVF BAG CHANGED. INFUSING AT 50ML/HR. AWAKENED TO STERNAL RUB. FOUL ODOR NOTED IN ROOM. LIKELY FROM BREATH. UNABLE TO IDENTIFY SOURCE. PT SLEEPING NOW. BOWEL TONES ACTIVE.
--- NOTE | 2017-08-22 09:49 | NUR ---
VITALS AND I AN O DONE
--- NOTE | 2017-08-22 11:20 | NUR ---
TRANSFERRED PT TO BSC. INCONTINENT OF URINE. ATTENDS CHANGED. 3PA. PATIENT VERY "FLOPPY" IN MOTOR MOVEMENTS. UNABLE TO URINATE MORE INTO COMMODE. LINENS CHANGED. SCAB NOTED ON RIGHT KNEE. OLD, HEALING ABRASION.
--- NOTE | 2017-08-22 11:58 | NUR ---
worked with physical therapy. 2PA with fww. able to follow commands. some difficulty with motor function. tolerated therapy well. oriented to month, president, self, and place.
--- NOTE | 2017-08-22 16:09 | NUR ---
PT INCONTINENT OF URINE. NO BM. CHANGED ATTEND AND CHUX.
--- NOTE | 2017-08-22 17:37 | NUR ---
pt depth perception impaired. attempts to scoop food from bowl and is aiming several inches to right of bowl. pt sitting up eating in bed now.
--- NOTE | 2017-08-22 17:48 | NUR ---
PT SLEEPY TODAY. ORIENTED TO SELF, , AND PLACE (SOMETIMES). REDD HOSE. 2PA HEAVY. VERY UNSTEADY. BALANCE AND DEPTH PERCEPTION IMPAIRED. NO BM SINCE ADMISSION. D5LR + 20KCL @ 50 IN MIDLINE ERIKA. EATING DINNER WELL. PHYSICAL THERAPY WORKED WITH HIM TODAY.
--- NOTE | 2017-08-22 18:14 | NUR ---
BP LOW. HOSPITALIST NOTIFIED. MANUAL BP 80/50. ORDERS TO INCREASE IVF TO 75ML/HR AND GIVE 500ML LR BOLUS. INFUSING BOLUS NOW.
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
--- NOTE | 2017-08-22 22:21 | NUR ---
ANSWERED CALL LIGHT, PT REQUESTING CPAP MASK BE REMOVED. PT ASKING HOW MUCH THE MACHINES COST, INFORMED PT THAT WE WILL LOOK INTO THAT FOR HIM. LIGHTS ON IN ROOM REQUESTED, CALL LIGHT IN REACH.
--- NOTE | 2017-08-22 22:30 | NUR ---
DR. LENTZ NOTIFIED VIA TELEPHONE RE BP 97/68 MAP 74. NOTIFIED THAT NIO FOR BOWEL PREP IN PLACE, AND ORIENTATION OF PT. DR. LENTZ STATED TO CONTINUE IVF AT 75ML/HR.
--- NOTE | 2017-08-22 23:02 | NUR ---
IN PT ROOM TO ADMINISTER LAXATIVE, PT ABLE TO DRINK 200 ML INSTRUCTED, FOLLOWING COMMANDS WELL. PT QUESTIONING ALCOHOL WITHDRAWAL PROCESS AND WHEN THE HOSPITAL STARTED CARING FOR PT'S WITHDRAWING, EDUCATION PROVIDED. PT SITTING UP IN BED, REQUESTED MILK. BROUGHT FRESH ICE WATER WELL. CALL LIGHT GIVEN TO PT.
--- NOTE | 2017-08-23 00:33 | NUR ---
VITALS AND I&OS DONE AND CHARTED. HELPED RN CHANGE HIS ATTENDS. GOT HIM COMFORTABLE IN HIS BED. PT WANTED NOTHING ELSE AT THAT TIME. BEDSIDE TABLE AND CALL LIGHT WITHIN REACH.
--- NOTE | 2017-08-23 01:37 | NUR ---
PT SLEEPING AT THIS TIME, EYES CLOSED, BREATHING NON-LABORED, LIGHTS OFF IN ROOM. CURTAIN OPEN FOR VIEW FROM NURSES STATION, BED ALARM SET.
--- NOTE | 2017-08-23 02:25 | NUR ---
IN PT ROOM, ASSESSED ATTENDS, ATTENDS DRY AT THIS TIME. ASSISTED PT TO BOOST UP IN BED WITH CHRISTINE PAN. PT HAS NO ADDITIONAL REQUESTS. LIGHTS OFF IN ROOM. BED ALARM SET.
--- NOTE | 2017-08-23 04:08 | NUR ---
CHANGED PT'S ATTENDS WITH ASSISTANCE FROM ATILIO CHAVEZ, PT INCONTINENT OF LIQUID STOOL, URINE. PT ABLE TO FOLLOW COMMANDS TO ROLL FROM SIDE TO SIDE. PT IS DROWSY, ORIENTED TO PERSON, PLACE, EVENT, DATE. LUNGS CLEAR THROUGHOUT ALL LOBES, HR REGULAR RHYTHM. BOWEL TONES ACTIVE, ABD SOFT. PT DENIES PAIN, DENIES ANY NEEDS AT THIS TIME. IVF INFUSING AT 75 ML/HR WNL. CALL LIGHT AND INSTRUCTIONS FOR CALLING GIVEN TO PT, LIGHTS OFF IN ROOM, BED ALARM SET.
--- NOTE | 2017-08-23 05:06 | NUR ---
IN PT ROOM, PT HAS LEGS OVER SIDE, WANTING TO GET TO RESTROOM FOR BM, ATILIO KELLY IN ROOM, ASSISTED PT TO BSC WITH 2PA, 3PA TO CLEAN PT AND STAND AFTER LIQUID BROWN BM. PT BACK TO BED, ATTENDS ON, BED ALARM ON, IVF INFUSING.
--- NOTE | 2017-08-23 05:09 | NUR ---
HELPED RN'S LETICIA AND JOSE GET PT FROM THE BEDSIDE COMMODE TO THE BED. CLEANED PT UP FROM HIS BOWEL MOVEMENT. WASHED OUT COMMODE AND CHARTED BM.
--- NOTE | 2017-08-23 06:57 | NUR ---
ANSWERED CALL LIGHT, ASSISTED PT WITH 3PA TO BSC FOR BM. PT VERY WEAK ON FEET, ABLE TO SIT UP WITH MINIMAL SUPPORT ON COMMODE. LARGE LIQUID BM, INCONTINENT OF URINE, STOOL. BACK TO BED, ATTENDS, CHUX IN PLACE. BED ALARM SET. CALL LIGHT WITH PT.
--- NOTE | 2017-08-23 06:59 | NUR ---
PT FLAT, ORIENTED X 3 THIS SHIFT. PT COMMUNICATING, FOLLOWING COMMANDS THIS SHIFT. PT CONTINUES TO BE VERY WEAK, REQUIRES 3PA TO TRANSFER, VERY WEAK ON FEET. PT INCONTINENT OF STOOL AND URINE, ATTENDS IN PLACE. PT DID USE CALL LIGHT.
--- NOTE | 2017-08-23 08:35 | NUR ---
PT AWAKE DURING BEDSIDE REPORT WITH EMILEE TRIMBLE AT 0700. PATIENT MUCH MORE ALERT AND ORIENTED THAN YESTERDAY. PT UP ON BSC NOW. 2PA TO TRANSFER PT. PT HAVING LIQUID BMs AFTER BOWEL PREP GIVEN BY MEDICAID ELIGIBILITY SPECIALIST RN. FLUSHED MIDLINE WITH 20ML NS. FLUSHES VERY WELL. PT BALANCE APPEARS IMPROVED FROM YESTERDAY MORNING. IVF INFUSING AT 75 ML/HR. ATTENDS IN PLACE. PT STILL INCONTINENT OF URINE AND SOME STOOL. LINENS CHANGED BY CNAs.
--- NOTE | 2017-08-23 08:43 | NUR ---
pt reports double vision and hallucinations. "i see the cat that runs around. i was trying to call it over".
--- NOTE | 2017-08-23 11:03 | NUR ---
PT SNORING, SLEEPING SOUNDLY AT 1100. PHYSICAL THERAPIST IN TO WORK WITH PATIENT NOW. IV PUMP CLEARED. PT REPORTS NO PAIN AT THIS TIME.
--- NOTE | 2017-08-23 11:27 | NUR ---
HELPED PT TO THE BSC AND THEN TO FOR PT TO GO TO THEPY.
--- NOTE | 2017-08-23 11:32 | NUR ---
pt ambulating with physical therapist 1pa with walker and gait belt and wheelchair follow from PT room back to room 120. tolerating very well.
--- NOTE | 2017-08-23 15:11 | NUR ---
CHANGED PT INCON.
--- NOTE | 2017-08-23 17:28 | NUR ---
PT AMBULATED 1PA GAITBELT AND WALKER ACROSS [place] TO ROOM 110 AND BACK TO ROOM. UP IN RECLINER FOR DINNER. CHAIR ALARM IN PLACE. CALL LIGHT IN REACH.
--- NOTE | 2017-08-23 18:00 | NUR ---
AMBULATED PATIENT SHORT DISTANCE IN HALLS X2 TODAY. 1PA WITH FWW AND GAIT BELT. BALANCE UNSTEADY. UP IN CHAIR FOR DINNER. CONTINUES TO ORIENT BETTER EVERY DAY. BMs TODAY. MAGNESIUM DISCONTINUED. SALINE LOCKED. INCONTINENT OF URINE. CHAIR/BED ALARM. MIDLINE ERIKA. REGULAR DIET. ABLE TO EAT WELL.
--- NOTE | 2017-08-23 18:21 | NUR ---
PT HAD INCONTINENT BM WHILE SITTING IN CHAIR. TRANSFERRED PT TO BEDSIDE COMMODE BEFORE TRANSFERRING TO BED. GOWN CHANGED. PT IN BED NOW WITH BED ALARM ON.
--- NOTE | 2017-08-23 19:57 | NUR ---
RECEIVED REPORT FROM DAY SHIFT RN. PATIENT IS RESTING IN BED WATCHING TV. PATIENT DENIES ANY NEEDS AT THIS TIME. CALL LIGHT IN REACH. BED ALARM ON FOR SAFETY.
--- NOTE | 2017-08-23 20:40 | NUR ---
PATIENT ASSESMENT COMPLETED. PATIENT HAS NO EVENING MEDICATION DUE. PATIENTS LINE FLUSHED AND HEPLOCKED. PATIENT DENIES ANY PAIN OR NAUSEA. PATIENT IS ABLE TO STATE HIS NAME, , AND THAT HE IS IN THE HOSPITAL. PATIENT DENIES ANY NEEDS AT THIS TIME. CALL LIGHTIN REACH AND BED ALARM ON FOR SAFETY.
--- NOTE | 2017-08-23 22:41 | NUR ---
CHANGED PTS ATTENDS AND FULL BED CHANGE. BEDSIDE TABLE AND CALL LIGHT WITHIN REACH.
--- NOTE | 2017-08-23 22:50 | NUR ---
CHARGE WEIGHER IN WITH PATIENT. PATIENT WAS INCONTINENT. LINENS CHANGED. CALL LIGHT IN REACH AND BED ALARM ON FOR SAFETY.
--- NOTE | 2017-08-24 00:14 | NUR ---
PATIENT IS RESTING IN BED WITH EYES CLOSED. BREATHING IS EVEN AND UNLABORED, RR 18. CALL LIGHT IN REACH. BED ALARM REMAINS ON FOR SAFETY.
--- NOTE | 2017-08-24 01:04 | NUR ---
PATIENT STARTED TO CLIMB OUT OF BED. PATIENT ASSISTED TO THE BSC. PATIENT WAS INCONTINENT OF URINE. PATIENT TOLERATED ACITVITY WELL, BUT WAS VERY SHAKY WHEN FIRST GETTING UP. PATIENT IS NOW BACK IN BED. PATIENT DENIES ANY FURTHER NEEDS AT THIS TIME. CALL LIGHT IN REACH. BED ALARM ON FOR SAFETY.
--- NOTE | 2017-08-24 03:10 | NUR ---
PATIENT IS RESTING IN BED WITH EYES CLOSED, RR 18. BED ALARM REMAINS ON FOR SAFETY, CALL LIGHTIN REACH.
--- NOTE | 2017-08-24 04:00 | NUR ---
HELPED PT TO THE BEDSIDE COMMODE WITH ATILIO LAO. HELPED PT BACK TO BED WITH ATILIO CORTEZ. BEDSIDE TABLE AND CALL LIGHT WITHIN REACH.
--- NOTE | 2017-08-24 04:09 | NUR ---
PATIENT ASSISTED TO THE BSC. PATIENT WAS ABLE TO VOID AND WAS INCONTINENT. PATIENT IS NOW BACK IN BED RESTING. PATIENTS BED ALARM IS ON FOR SAFETY AND CALL LIGHT IN REACH
--- NOTE | 2017-08-24 05:18 | NUR ---
PATIENT RESTED WELL THROUGHOUT THE SHIFT. PATIENT IS ON A REGULAR DIET WITH MEATS CHOPPER. PATIENT IS A 2PA TO [facility] [place]. PATIENT IS INCONTINENT AT TIMES. PATIENT HAS A MIDLINE IN HIS RIGHT UPPER ARM THAT IS HEPLOCKED WHEN NOT IN USE. PATIENT HAS TEDHOSE ON LOWER BILAT EXTREMETIES. PATIENT IS CONFUSED AND FORGETFUL AT TIMES. PATIENT HAS BED ALARM ON FOR SAFETY.
--- NOTE | 2017-08-24 05:34 | NUR ---
VITALS AND I&OS DONE AND CHARTED. BEDSIDE TABLE AND CALL LIGHT IN REACH.
--- NOTE | 2017-08-24 06:21 | NUR ---
PATIENT GIVEN PRN NAUSEA MEDICATION PER REQUEST. PATIENTS ATTEND CHANGED. PATIENT REPOSITIONED IN BED. PATIENT DENIES ANY PAIN AT THIS TIME. CALL LIGHT IN REACH AND BED ALARM ON FOR SAFETY.
--- NOTE | 2017-08-24 06:36 | NUR ---
VITALS AND I&OS DONE AND CHARTED. PT NEEDS NOTHING ELSE AT THIS TIME. BEDSIDE TABLE AND CALL LIGHT WITHIN REACH.
--- NOTE | 2017-08-24 07:57 | NUR ---
PT SITTING IN BED. DIFFICULTY WITH REMEMBERING PLACE AND TOWN, BUT FOUND IT AFTER ABOUT 1 MINUTE. LUNGS CLEAR. DRY OCCASIONAL COUGH. HEP LOCKED ERIKA MIDLINE. NO OTHER SCHEDULED MEDS. NAUSEA GONE FROM THIS MORNING.
--- NOTE | 2017-08-24 08:30 | NUR ---
ASSISTED PATIENT WITH ADJUSTING IN BED. PATIENT SITTING STRAIGHT UP. PATIENT EATING BREAKFAST. CALL BUTTON IN REACH. BED ALARM ON. NO OTHER NEEDS AT THIS TIME.
--- NOTE | 2017-08-24 11:03 | NUR ---
ASSISTED PATIENT WITH BATH. ORAL CARE DONE. CLEAN LINENS. LAURI CARE DONE. FRESH ICE WATER GIVEN. RN IN ROOM TO SEE PATIENT. BED ALARM ON. CALL BUTTON IN REACH.
--- NOTE | 2017-08-24 13:59 | NUR ---
PATIENT RESTING IN BED. GIRLFRIEND IN ROOM SHAVING PATIENT WITH ELECTRIC SHAVER FROM HOME. FRESH ICE WATER GIVEN. NO OTHER NEEDS AT THIS TIME.
--- NOTE | 2017-08-24 14:24 | NUR ---
PT SITTING UP IN BED, MORE ALERT THAN LAST VISIT. HE WAS EATING LUNCH AND HE SEEMED TO BE ENJOYING IT. I EXTENDED A BLESSING AND SAID I WOULD CHECK BACK AGAIN. WANTED HIM TO CONTINUE EATING
--- NOTE | 2017-08-24 14:32 | NUR ---
TRANSFERRED TO WHEELCHAIR WITH 2PA AND GAIT BELT. GIRLFRIEND VISITING. WANTED TO TAKE HIM ON A WALK IN THE WHEELCHAIR TO GET OUT OF THE ROOM. JANELLE TRIMBLE WITH PATIENT AND VISITOR ON WALK NOW.
--- NOTE | 2017-08-24 16:00 | NUR ---
patient resting in bed with eyes closed. call button in reach.
--- NOTE | 2017-08-24 17:59 | NUR ---
worked with physical therapy today. a little less steady with ambulation than yesterday. oriented x4 mostly (takes a bit of time to remember). girlfriend visiting patient a few times today. sleeps between cares. incontinent of urine. less loose stools today. appetite good.
--- NOTE | 2017-08-24 18:29 | NUR ---
PATIENT SITTING UP IN CHAIR. FAMLIY IN ROOML. CHAIR ALARM ON. CALL BUTTON IN REACH. NO OTHER NEEDS AT THIS TIME.
--- NOTE | 2017-08-24 19:13 | NUR ---
IN ROOM FOR REPORT, PT HAS VISITORS AT THIS TIME. CHAIR ALARM ON AND CALL LIGHT WITHIN REACH.
--- NOTE | 2017-08-24 19:45 | NUR ---
PATIENTS CHAIR ALARM ALERTED STAFF THAT PATIENT WAS TRYING TO GET UP WITHOUT ASSISTANCE. PATIENT IS A 2PA TO [facility] [place]. PATIENT WAS INCONTINENT OF URINE. PATIENT IS NOW IN BED. PATIENTS ATTEND AND GOWN CHANGED. LAURI CARE PERFORMED. PATIENTS BED ALARM PLACED ON FOR SAFETY AND CALL. LIGHT IN REACH.
--- NOTE | 2017-08-24 22:32 | NUR ---
PATIENT ASSISTED TO BSC. PATIENT IS A 2PA. PATIENT HAD A LARGE INCONTINENT AMOUNT OF URINE. PATIENTS BEDDING CHANGED. PATIENTS ATTEND CHANGED, LAURI CARE PERFORMED. PATIENTS BED ALARM IS ON FOR SAFETY. PATIENT DENIES ANY PAIN OR NAUSEA. CALL LIGHT IN REACH.
--- NOTE | 2017-08-24 23:10 | NUR ---
COMPLETED PT ASSESSMENT, PT IS IN BED WATCHING TV WITH BEDALARM ON. LUNGS CLEAR BUT PT STATES HE STILL HAS A SMALL COUGH, HR REG ON RA, PT STATES HE HAS A GOOD APPETITE, HE IS A 2PA WITH FWW. RT MIDLINE WAS HEP LOCKED. AES IN PLACE AND SKIN IS ALL INTACT WITH GENERALIZED BRUISES. PT HAS NO REQUESTS AT THIS TIME, CALL LIGHT IS WITHIN REACH AND BED ALARM ON.
--- NOTE | 2017-08-25 02:19 | NUR ---
PATIENT ASSISTED TO THE BSC. PATIENT USED WALKER TO PIVOT TRANSFER. PATIENT IS A 2PA. PATIENT WAS INCONTINENT OF URINE. PATIENT FELT IF HE HAD TO HAVE A BM. PATIENT WAS UNABLE TO HAVE A BM. PATIENT IS NOW BACK IN BED RESTING. PATIENTS BED ALARM IS ON FOR SAFETY AND CALL LIGHT IN REACH. PATIENT IS AAOX3. PATIENT USED CALL LIGHT TO ALERT STAFF
--- NOTE | 2017-08-25 03:40 | NUR ---
PT IS RESTING WITH EYES CLOSED, RESPIRATIONS EVEN AND NONLABORED. CALL LIGHT WITHIN REACH AND BED ALARM ON.
--- NOTE | 2017-08-25 05:33 | NUR ---
PATIENTS VITALS TAKEN AND RECORDED. PATIENT ASSISTED TO THE BSC W/FWW. PATIENT IS AAOX3 THIS AM. PATIENTS ATTEND CHANGED. PATIENT IS BACK IN BED RESTING. BED ALARM ON FOR SAFETY AND CALL LIGHT IN REACH. PATIENT PROVIDED WITH FRESH ICE WATER AND APPLE JUICE. NO FURTHER NEEDS NOTED.
--- NOTE | 2017-08-25 05:39 | NUR ---
PT'S BP IS 89/54 AND HR OF 86 ALL OTHER VS ARE STABLE AND PT IS ASYMPTOMATIC. LOOKING OVER PT'S HX HIS SBP HAS BEEN LOW 85. ATTEMPTED TO CALL HOSPITALIST, WILL TRY AGAIN A LITTLE LATER.
--- NOTE | 2017-08-25 05:54 | NUR ---
PT RESTED WELL THROUGH THE NIGHT HE WAS UP A FEW TIMES WITH INCONTINENCE. PT'S MIDLINE WAS HEP LOCKED LAST NIGHT AND HIS VS HAVE BEEN STABLE HOWEVER HIS BP RAN A LITTLE LOW THIS MORNING 89/54 BUT IS ASYMPTOMATIC. HE IS A 2 PERSON ASSIST HE IS UNSTEADY ON HIS FEET AND USES THE BEDSIDE COMMODE.
--- NOTE | 2017-08-25 06:00 | NUR ---
SPOKE WITH DR GARZON ABOUT PT'S BP, NO NEW ORDERS. WILL CONTINUE TO MONITOR.
--- NOTE | 2017-08-25 07:15 | NUR ---
PATIENT RESTING IN BED. ADJUSTED PATIENT IN BED. NO OTHER NEEDS AT THIS TIME. BED ALARM ON. CALL BUTTON IN REACH.
--- NOTE | 2017-08-25 08:14 | NUR ---
PT AWAKE DURING BEDSIDE REPORT. PT IN GOOD SPIRITS. STAFF ASSISTED PATIENT TO CHAIR FOR BREAKFAST. GIRLFRIEND TO BE IN TO VISIT AT 1000. PT ORIENTED X4 THIS MORNING. TROUBLE WITH DATE, BUT QUICKLY ORIENTED HIMSELF. UNSTEADY WITH BALANCING AT EDGE OF BED. IN RECLINER NOW. NO PAIN REPORTED.
--- NOTE | 2017-08-25 09:00 | NUR ---
PATIENT AMBULATING WITH FWW WITH PT IN HALLWAY.
--- NOTE | 2017-08-25 09:44 | NUR ---
PT IMPROVED IN PHYSICAL THERAPY TODAY. BALANCE IS BETTER.
--- NOTE | 2017-08-25 10:00 | NUR ---
PATIENT UP TO BATHROOM WITH 2PERSON ASSIST WITH GATE BELT AND FWW. PATIENT WAS WOBBLY WHEN WALKING. PATIENT WAS UNABLE TO VOID. DEPENDS UNDERWEAR DRY. PATIENT BACK TO CHAIR WITH CHAIR ALARM. VISITOR IN ROOM. PATIENT STATES THAT HIS GIRLFRIEND IS GOING TO GIVE HIM A HAIRCUT THIS AFTERNOON AND HE WOULD LIKE TO SHOWER AFTERWARDS. PATIENT STATES THAT HE HAS BRUSHED HIS TEETH EARLIER THIS AM. RN NOTIFIED BY STUDENT NURSE ABOUT LOW OUT PUT. NO OTHER NEEDS AT THIS TIME. CALL BUTTON IN REACH.
--- NOTE | 2017-08-25 11:17 | NUR ---
PT UNABLE TO URINATE THIS MORNING AT 1000. BLADDER SCAN 493ML. PT URINATED 600ML AT 1100. GIRLFRIEND CUTTING PATIENT'S HAIR NOW AND THEN WOULD LIKE A SHOWER.
--- NOTE | 2017-08-25 11:25 | NUR ---
CARE CONFERENCE ATTENDEES: PATIENT, SHADIA SIDDIQI PT BROTHER, VASU SANDERS LIFE PARTNER, MYSELF CASE MANAGEMENT. WE DISCUSSED HOW PT IS DOING AND WHAT THE NEXT STEP IS. PT IS GOING TO NEED MORE REHAB, FAMILY WANTED [facility] AND IF THAT WAS NOT AN OPTION THEN THEY WOULD LIKE HIM TO GO TO [facility]. TOLD THEM I WOULD WORK ON THOSE OPTIONS.
--- NOTE | 2017-08-25 12:00 | NUR ---
PATIENT TO SHOWER WITH 2 PERSON ASSIST WITH FWW AND GATE BELT. PATIENT TO CHAIR AFTER SHOWER. CALL BUTTON IN REACH. NO OTHER NEEDS AT THIS TIME. FRIEND IN ROOM TO VISIT.
--- NOTE | 2017-08-25 12:15 | NUR ---
CALLED [facility] TALKED WITH DESMOND, SHE STATED THAT THEY HAVE NO BEDS UNTIL SOMEONE IS DC'D. I THEN CALLED [facility] WH[facility] WAS THE PT AND FAMILY SECOND CHOICE FOR PLACEMENT. MESSAGE LEFT FOR LUTHER THE [facility] APPRENTICE. FAXED CHART NOTES TO THEM. INCLUDING FACESHEET, ER NOTES, H AND P, PROG NOTES, MEDS, LABS, IMAGING, PT EVAL AND NOTES TO [facility]
--- NOTE | 2017-08-25 12:20 | NUR ---
WAS INFORMED THAT [facility] ISN'T ALLOWED TO TAKE [place] [employer], SO CALLED VASU TO SEE WHERE THEY WANTED ME TO GO FROM THERE AND SHE SAID TO CALL [facility] AND ASK IF THEY WOULD PAY FOR HIS STAY AT [facility]. I SAID I WOULD DO THAT BUT ASKED HER ABOUT SENDING HIM TO [facility] IN [place] AND SHE SAID WHATEVER WE HAVE TO DO TO GET HIM THE REHAB. I GOT OFF THE PHONE WITH HER AND I CALLED AND SPOKE WITH KEENAN-THE [facility] NURSE AND SHE STATED SHE WOULD CHECK AND SEE IF THEY COULD PAY FOR HIM TO GO THERE PER FAMILY REQUEST.
--- NOTE | 2017-08-25 12:52 | NUR ---
NOTICED PT HAS HAD A HAIRCUT, HE IS SITTING UP IN CHAIR EATING LUNCH. HE SEEMS TO ENJOY THE TIMES I HAVE NOTICED HIM EATING. HE ALWAYS SMILES. TODAY HE NOTICED THE SUN WAS SHINING AND HE WISHED HE COULD GO OUT FOR SOME FRESH AIR. EACH DAY PT SEEMS ALITTLE MORE ALERT, AND ABLE TO RESPOND QUICKER. EXTENDED A BLESSING, WILL CONTINUE TO FOLLOW
--- NOTE | 2017-08-25 12:55 | NUR ---
TALKED WITH KEENAN AND SHE SAID SHE TALKED WITH THE HEAD OF FINANCE AND THEY SAID THAT IF HIS PRIMARY INSURANCE WON'T PAY THEN THEY WILL NOT PAY.
--- NOTE | 2017-08-25 13:38 | NUR ---
CALLED AND SPOKE WITH LOGAN ABOUT FAXING CHART NOTES TO THEM. SHE STATED THAT WOULD BE FINE. FAXED FACESHEET, ER NOTE, H AND P, PROG NOTES, IMAGING, LABS, MED, PT EVAL AND NOTES TO THEM. RECIEVED A FAX CONFIRMATION.
--- NOTE | 2017-08-25 14:25 | NUR ---
PT RECEIVED SHOWER TODAY AFTER HAIRCUT BY GIRLFRIEND. PT WANTS TO GO FOR A WALK IN THE WHEELCHAIR NOW. BETTYE, GLOBAL CEO, IS GOING TO TAKE PATIENT ON A WALK. PT REMOVED MIDLINE IN [place]. OK TO LEAVE IV OUT NOW PER HOSPITALIST.
--- NOTE | 2017-08-25 17:17 | NUR ---
RECIEVED A CALL FROM LOGAN AT [facility] IN [place] STATING THEY WOULD ACCEPT THE PT. ATTEMPTED TO CALL PT CONTACT # NO ANSWER. LET DR GARZON KNOW THEY ACCEPTED THE PT. AGAIN CALLED VASU AND SHE SAID SHE WAS HERE WITH PT AND I WENT AND TALKED WITH THEM. THEY ARE HAPPY WITH THESE PLANS. VASU STATES SHE WILL DRIVE HIM TO [facility] IF WE HELP GET HIM IN THE CAR AND THEY HELP GET HIM OUT.
--- NOTE | 2017-08-25 17:45 | NUR ---
PATIENT SITTING UP WITH FRIEND IN ROOM. NO OTHER NEEDS AT THIS TIME. CALL BUTTON IN REACH.
--- NOTE | 2017-08-25 18:26 | NUR ---
PT REMOVED MIDLINE IN [place]. NO IV ACCESS. OK BY HOSPITALIST. WORKING WITH PHYSICAL THERAPY. IS IMPROVING DAILY. 1-2PA WITH FWW. BED/CHAIR ALARM! APPETITE GOOD. BALANCE IMPAIRED. ORIENTED X4.
--- NOTE | 2017-08-25 19:00 | NUR ---
RECEIVED REPORT, PT IS AWAKE IN BED. PT STATES HE HAS NO PAIN AT THIS TIME. PT DENIES ANY NEEDS, CALL LIGHT IS WITHIN REACH, AND BED ALARM ON.
--- NOTE | 2017-08-25 22:30 | NUR ---
HELPED PT UP TO COMMODE, HE WAS NOT ABLE TO GO. PT REPORTS HE SLEPT VERY DEEP THIS EVENING AND HAD DREAMS. VS TAKEN AND PT'S BP IS 93/57 WHICH HAS BEEN COMMON FOR THIS PT AT TIMES. HE IS ASYMPTOMATIC OF LOW BP. PT'S MIDLINE WAS REMOVED PER REPORT SO HEPARIN FLUSH WAS NOT ADMINISTERED. PT HAS NO COMPLAINTS OF PAIN AT THIS TIME. CALL LIGHT IS WITHIN REACH AND BED ALARM IS ON.
--- NOTE | 2017-08-26 00:34 | NUR ---
PT IS RESTING WITH EYES CLOSED, REPIRATIONS EVEN AND NONLABORED. CALL LIGHT IS WITHIN REACH, AND BED ALARM IS ON.
--- NOTE | 2017-08-26 01:28 | NUR ---
PT IS RESTING WITH EYES CLOSED, RESPIRATIONS EVEN AND NONLABORED, CALL LIGHT IS WITHIN REACH.
--- NOTE | 2017-08-26 05:10 | NUR ---
PT SLEPT WELL MOST OF THE NIGHT, HE WOKE WET A FEW TIMES AND NEEDED BED CHANGED. HE CONTINUES TO IMPROVE WITH HIS COMMUNICATION AND IS USING THE CALL LIGHT APPROPRIATELY, HE DID NOT TRY TO GET OUT OF BED ON HIS OWN. HE IS A 2PA TO BEDSIDE COMMODE. PLANS ARE TO DC TODAY TO SNF.
--- NOTE | 2017-08-26 07:42 | NUR ---
BEDSIDE REPORT RECEIVED FROM [facility]. PATIENT AWAKE LYING IN BED, DENIES PAIN. NO APPARENT DISTRESS. NO REQUEST AT THIS TIME. CALL LIGHT IN REACH.
--- NOTE | 2017-08-26 08:00 | NUR ---
PATIENT WAS ASSISTED TO CHAIR WITH 2 PERS ASSIST. BREAKFAST TRAY SET AND MORNING MED ADMINISTERED. PATIENT TOOK PO MEDS WITH NO DIFFICULTY. CALL LIGHT IN REACH.
--- NOTE | 2017-08-26 08:41 | NUR ---
PATIENT FROM CHAIR UP TO BATHROOM WITH 2 PERSON ASSIST WITH FWW THEN BACK TO BED. PATIENT SET UP FOR ORAL CARE AND HANDS AND FACE WASHED. CALL BUTTON IN REACH. BED ALARM ON. NO OTHER NEEDS AT THIS TIME.
--- NOTE | 2017-08-26 10:03 | NUR ---
PATIENT SITTING UP IN BED WATCHING TV. CALL BUTTON IN REACH. NO OTHER NEEDS AT THIS TIME. BED ALARM ON.
--- NOTE | 2017-08-26 10:30 | NUR ---
FAXED ORDERS AND PASRR TO [facility] IN [place]. SPOKE WITH LOGAN FROM [facility] AND ALSO CALLED AND SPOKE WITH VASU AND SHE TOLD ME TO CALL HER WHEN ALL IS READY AND SHE WILL DRIVE HIM OVER.
--- NOTE | 2017-08-26 11:26 | NUR ---
PATIENT RESTING IN BED AT THIS TIME. NO APPARENT DISTRESS. WILL CONTINUE TO MONITOR.
--- NOTE | 2017-08-26 11:33 | NUR ---
RECIEVED NOTIFICATION FROM LOGAN AT [facility] THAT ORDERS WERE GOOD AND PT CAN COME AT ANY TIME. THEN CALLED VASU AND TOLD HER WE WERE GOOD TO GO. SHE STATED SHE WOULD BE RIGHT UP.
--- NOTE | 2017-08-27 18:41 | NUR ---
PER REQUEST OF DR DIAZ, AND PERMISSION FROM PT, FAXED COPY OF SNF ORDERS TO [phone]. RECIEVED FAX CONFIRMATION.
[2017-10-05] MEDS ORDERED: MULTIVITAMINS1 EAC8 PO (13:55)
[2017-10-05] MEDS ORDERED: MAGNESIUM250 MG PO (13:55)
== END 2017-08-26 11:50 | disposition home or self-care (01) | DRG 897 ==
LOC: ED 14:05 → CCU 16:27 → MS 16:27
PROVIDERS: ADMIT Internal Medicine
PROC: HZ2ZZZZ Detoxification Services for Substance Abuse Treatment (ICD-10-PCS; principal; 2017-08-16)
PROC: 05H533Z Insertion of Infusion Device into Right Subclavian Vein, Percutaneous Approach (ICD-10-PCS; 2017-08-17)
DX: F10.231 Alcohol dependence with withdrawal delirium (principal); E87.1 Hypo-osmolality and hyponatremia; E87.2 Acidosis; R17 Unspecified jaundice; R56.9 Unspecified convulsions; E83.42 Hypomagnesemia; D69.6 Thrombocytopenia, unspecified; E87.6 Hypokalemia; D53.9 Nutritional anemia, unspecified; R45.1 Restlessness and agitation
CPT/HCPCS: 36415; 36569; 51798; 70450; 71045; 76705; 80048; 80053; 80076; 81001; 82607; 82728; 82746; 83540; 83605; 83690; 83735; 84155; 84165; 84439; 84443; 84466; 85025; 85045; 94660; 96365; 96366; 96367; 96375; 96376; 97110; 97116; 97162; 97530; 99285; C1751; G0480; J2060; J2405; J2550; J2560; J3360; J3411; J3475; J3480; J7030; J7040; J7042; J7050; J7060; J7120

== ENCOUNTER 2019-08-03 17:32 | Emergency (ER) | payer OTHER ==
[~2019-08-03] VITALS: Ht 180.3 cm; Wt 79.4 kg
--- OUTSIDE RECORDS SUMMARY | ~2019-08-03 | XMS | Encounter Summary ---
Demographics + + + | Address | [address] | | | [place] [address] | + + + | Home Phone | | + + + | Preferred Language | Unknown | + + + | Marital Status | Single | + + + | Mu-Ism Affiliation | 1076 | + + + | Race | Unknown | + + + | Ethnic Group | Unknown | + + + Author + + + | Author | [facility] | | | and Zohaibana | + + + | Organization | [facility] | | | and Zohaibana | [...] [place], [place] | | | | | [address] | | + + + + + | Queenie Dumas | ECON | [place] | | | | | [address] | | + + + + + Care Team Providers + +------+ + | Care Medical Insurance Coder Name | Role | Phone | + +------+ + PCP | Unavailable | + +------+ + Encounter Details +--------+ + + + + | Date | Type | Department | Care Team | Description | +--------+ + + + + | 04/22/ | Hospital | [facility] | Johnson Burr, | | | 2011 - | Encounter | MED CTR SUR[facility] | [address] | | | | | [address] [place] | [place], [place] | | | 04/24/ | | [place] [address] | [phone] | | | 2011 | | [phone] | [phone] | | | | | | | | | | | | Abdi Del Rio MD | | | | | | [address] | | | | | | [place], [place] | | | | | | [address] | | | | | | | [...] on file | | + + + + + + + | Job Start Date | Occupation | Industry | + + + + | Not on file | Not on file | Not on file | + + + + + + + + | Travel History | Travel Start | Travel End | + + + + + + | No recent travel history available. | + + documented as of this encounter Discharge Summaries Abdi Del Rio MD - 04/24/2012 12:36 [place] [address] Patient Name: HUSEYIN DUMAS Provider: Johnson Burr MD Unit #: [id number] Location : [address] [place] [address] #: [id number] : 1970 ADMISSION DATE: 04/22/2012 DISCHARGE DATE: [...] Thursday and went into the hospital in [place], and then he refused to go back to detox , and she tried to help at home, but that did not work, and that is why he ended up here. His girlfriend is Yung. The patient 's sister was not able to meet with me, but she is a nurse at the [facility] [facility] [employer], and th e tentative plan, I understand, is they are trying to get him into the treatment program [facility] in [facility], probably Thursday. The patient says he does [...] Del Rio MD Internal Medicine JOB #: [id number] EXT JOB #:[id number] cc: Johnson Burr MD [facility] <<Signature on File>> Abdi Del Rio MD0 04/25/12 0645 < documented in this encounter Plan of [...] 102 | 70 - 109 mg/dL | [facility] | | | [facility] | [facility] | | | [facility] | [facility] | | | | | [facility] - | | | | | | LABORATORY | | + + + + + + | Calcium | 9.1 | 8.3 - 10.5 | [facility] | | | | | mg/dL | [facility] | | | | | | [facility] | | | | | | CENTER - | | | | | | LABORATORY | | + + + + + + | BUN | 6 (L) | 7 - 18 mg/dL | [facility] | | | | | | [facility] | | | [facility] | | [facility] | | | | | | CENTER - | | | | | | LABORATORY | | + + + + + + | Creatinine | 0.68 | 0.60 - 1.30 | [facility] | | | | | mg/dL | [facility] | | | | | | MEDICAL | | | | | | CENTER - | | | | | | LABORATORY | | + + + + + + | Estimated | >60Comment: For | >60 mL/min/A | [facility] | | | GFR | -Americans, | [...] + | [facility] | [address] | [place] | [phone] | | [facility] | | [address] | | | - LABORATORY | | | | + + + + + | [facility] | [address] | [place], [place] | | | [facility] | | [address] | | | - LABORATORY | | | | + + + + + Magnesium (04/24/2012 6:20 AM PDT) + +-------+ + + + | Component | Value | Ref Range | Performed | Pathologist | | | | | At | Signature | + +-------+ + + + | Magnesium | 1.9 | 1.8 - 2.5 mg/dL | [facility] | | | | | | [facility] | | | | | | [facility]ICAL | | | | | | CENTER - | | | | | | LABORATORY | | + +-------+ + + + + + | Specimen | + + | | + + + + + + + | Performing | Address | City/State[facility] | Phone Number | | Organization | | | | + + + + + | [facility] | [address] | [place] | [phone] | | [facility] | | [address] | | | - LABORATORY | | | | + + + + + | [facility] | [address] | [place] | | | [facility] | | [address] | | | - LABORATORY | | | | + + + + + CBC no Differential (04/24/2012 6:20 AM PDT) + + + + + + | Component | Value | Ref Range | Performed | Pathologist | | | | | At | Signature | + + + + + + | WBC | 5.9 | 4.0 - 11.0 K/uL | [facility] | | | | | | [facility] | | | | | | MEDICAL | | | | | | CENTER - | | | | | | LABORATORY | | + + + + + + | RBC | 3.86 (L) | 4.30 - 5.70 | [facility] | | | | | M/uL | [facility] | | | | | | MEDICAL [...] + + + + + + | MCV | 101.3 (H) | 83.0 - 101.0 fL | [facility] | | | | [facility] | | | | | [facility]ICAL | | | | | | CENTER - | | | | | | LABORATORY | | + + + + + + | MCH | 35.4 (H) | 28.0 - 35.0 pg | [facility] | | | | | | [facility] | | | | | | MEDICAL | | | | | | CENTER - | | | | | | LABORATORY | | + + + + + + | MCHC | 34.9 | 32.0 - 36.0 | [facility] | | | | | g/dL | [facility] | | | | | | MEDICAL | | | | | | CENTER - | | | | | | LABORATORY | | + + + + + + | RDW-CV | 15.2 (H) | <15.0 % | [facility] | | | | [...] + | [facility] | [address] | [place], [place] | [phone] | | [facility] | | [address] | | | - LABORATORY | | | | + + + + + | [facility] | [address] | [place], [place] | | | [facility] | | [address] | | | - LABORATORY | | [...] + + | [facility] | [address] | [place] | [phone] | | [facility] | | [address] | | | - LABORATORY | | | | + + + + + | [facility] | [address] | [place] | | | [facility] | | [address] | | | - LABORATORY | | [...] + | [facility] | [address] | [place], [place] | [phone] | | [facility] | | [address] | | | - LABORATORY | | | | + + + + + | [facility] | [address] | [place], [place] | | | [facility] | | [address] | | | - LABORATORY | | | | + + + + + CBC no Differential (04/23/2012 6:38 AM PDT) + + + + + + | Component | Value | Ref Range | Performed | Pathologist | | | | | At | Signature | + + + + + + | WBC | 5.5 (A) | 4.0 - 11.0 K/uL | [facility] | | | | | | [facility] | | | | | | MEDICAL | | | | | | CENTER - | | | | | | LABORATORY | | + + + + + + | RBC | 3.71 (L) | 4.30 - 5.70 | [facility] | | | | | M/uL | [facility] | [...] + + + + + + | MCV | 101.7 (H) | 83.0 - 101.0 fL | [facility] | | | | | | [facility] | | | | | | MEDICAL | | | | | | CENTER - | | | | | | LABORATORY | | + + + + + + | MCH | 34.9 | 28.0 - 35.0 pg | [facility] | | | | | | [facility] | | | | | | MEDICAL | | | | | | CENTER - | | | | | | LABORATORY | | + + + + + + | MCHC | 34.3 | 32.0 - 36.0 | [facility] | | | | | g/dL | [facility] | | | | | | MEDICAL | | | | | | CENTER - | | | | | | LABORATORY | | + + + + + + | RDW-CV | 15.2 (H) | <15.0 % | [facility] | | | | [...] + | [facility] | [address] | [place] | [phone] | | [facility] | | [address] | | | - LABORATORY | | | | + + + + + | [facility] | [address] | [place] | | | [facility] | | [address] | | | - LABORATORY | | [...] | | [facility] | | | [facility] | | | L ? | | | MEDICAL | | | | | | CENTER - | | | | | | LABORATORY | | + + + + + + | WBC | 6.4 | 4.0 - 11.0 K/uL | [facility] | | | | | | [facility] | | | | | | MEDICAL | | | | | | CENTER - | | | | | | LABORATORY | | + + + + + + | RBC | 3.77 (L) | 4.30 - 5.70 | [facility] | | | | | M/uL | [facility] | [...] + + + + + + | MCV | 100.3 | 83.0 - 101.0 fL | [facility] | | | | | | [facility] | | | | | | MEDICAL | | | | | | CENTER - | | | | | | LABORATORY | | + + + + + + | MCH | 34.7 | 28.0 - 35.0 pg | [facility] | | | | | | [facility] | | | | | | MEDICAL | | | | | | CENTER - | | | | | | LABORATORY | | + + + + + + | MCHC | 34.6 | 32.0 - 36.0 | [facility] | | | | | g/dL | [facility] | | | | | | MEDICAL | | | | | | CENTER - | | | | | | LABORATORY | | + + + + + + | RDW-CV | 15.1 (H) | <15.0 % | [facility] | | | | [...] + | [facility] | [address] | [place], [place] | [phone] | | [facility] | | [address] | | | - LABORATORY | | | | + + + + + | [facility] | [address] | [place], [place] | | | [facility] | | [address] | | | - LABORATORY | | | | + + + + + Ammonia (04/22/2012 11:49 AM PDT) + +--------+ + + + | Component | Value | Ref Range | Performed | Pathologist | | | | | At | Signature | + +--------+ + + + | Ammonia | 39 (H) | 11 - 35 umol/L | [facility] | | | | | | [facility] [...] + | [facility] | [address] | [place] | [phone] | | [facility] | | [address] | | | - LABORATORY | | | | + + + + + | [facility] | [address] | [place] | | | [facility] | | [address] | | | - LABORATORY | | [...] (H) | 70 - 109 mg/dL | [facility] | | | | | | [facility] | | | | | | MEDICAL | | | | | | CENTER - | | | | | | LABORATORY | | + + + + + + | Calcium | 8.8 | 8.3 - 10.5 | [facility] | | | | | mg/dL | [facility] | | | | [...] 3.2 | 3.2 - 5.0 gm/dL | [facility] | | | | | [...] | 0.67 | 0.60 - 1.30 | [facility] | | | | | mg/dL | [facility] | | | | | | MEDICAL | | | | | | CENTER - | | | | | | LABORATORY | | + + + + + + | Estimated | >60Comment: For | >60 mL/min/A | [facility] | | | GFR | -Americans, | [...] + | [facility] | [address] | [place], [place] | [phone] | | [facility] | | [address] | | | - LABORATORY | | | | + + + + + | [facility] | [address] | [place], [place] | | | [facility] | | [address] | | | - LABORATORY | | | | + + + + + Lipase (04/22/2012 11:49 AM PDT) + +-------+ + + + | Component | Value | Ref Range | Performed | Pathologist | | | | | At | Signature | + +-------+ + + + | Lipase | 41 | 0 - 60 U/L | [facility] | | | | | | [facility] [...] + | [facility] | [address] | [place] | [phone] | | [facility] | | [address] | | | - LABORATORY | | | | + + + + + | [facility] | [address] | [place] | | | [facility] | | [address] | | | - LABORATORY | | | | + + + + + CK Total (04/22/2012 11:49 AM PDT) + +---------+ + + + | Component | Value | Ref Range | Performed | Pathologist | | | | | At | Signature | + +---------+ + + + | CK TOTAL | 295 (H) | 22 - 269 IU/L | [facility] | | | | | | [facility] [...] + | [facility] | [address] | [place] | [phone] | | [facility] | | [address] | | | - LABORATORY | | | | + + + + + | [facility] | [address] | [place] | | | [facility] | | [address] | | | - LABORATORY | | [...] + | [facility] | [address] | [place] | [phone] | | [facility] | | [address] | | | - LABORATORY | | | | + + + + + | [facility] | [address] | [place] | | | [facility] | | [address] | | | - LABORATORY | | | | + + + + + documented in this encounter Visit Diagnoses Not on filedocumented in this encounter"
--- OUTSIDE RECORDS SUMMARY | ~2019-08-03 | XMS | Clinical Summary ---
Demographics + + + | Address | [address] | | | [place] [address] | + + + | Home Phone | | + + + | Preferred Language | Unknown | + + + | Marital Status | Single | + + + | Mandaen Affiliation | 1076 | + + + | Race | Unknown | + + + | Ethnic Group | Unknown | + + + Author + + + | Author | [facility] | | | and Zohaibana | + + + | Organization | [facility] | | | and Zohaibana | [...] [place], [place] | | | | | [address] | | + + + + + | Queenie Sánchez | ECON | [place], [place] | | | | | [address] | | + + + + + Care Team Providers + +------+ + | Care Jig Filler Name | Role | Phone | + [...] recent travel history available. | + + Last Filed Vital Signs Not on file Plan of Treatment + + + + + | Health Maintenance | Due Date | Last Done | Comments | + + + + + | Vaccine: | | | | | Dtap/Tdap/Td (1 - | 1 | | | | Tdap) | | | | + + + + + | Vaccine: Influenza | | | | | (#1) | 9 | | | + + + + + Results Not on filefrom Last 3 Months Insurance + +--------+ +--------+-------+---------+--------+ | Payer | Benefi | Subscriber | Effect | Phone | Address | Type | | | t Plan | ID | jenny | | | | | | / | | Dates | | | | | | Group | | | | | | + +--------+ +--------+-------+---------+--------+ | [facility] | [employer] | [id number] | 04/03/20 | | | Indemn | [...] | [address] | | | atul/Jean | | 1971 | [phone] | [place] [address] | | | michelle | | | 2 (Home) | | + +--------+ +--------+ + + Advance Directives + + + + + | Type | Date Recorded | Patient | Explanation | | | | Out Of Town Collection Clerk | | + + + + + | Power of | | | | | Truck Service Manager | | | | + + + + +"
--- OUTSIDE RECORDS SUMMARY | ~2019-08-03 | XMS | Clinical Summary ---
Demographics + + + | Address | [address] | | | [place] [address] | + + + | Home Phone | | + + + | Preferred Language | Unknown | + + + | Marital Status | Single | + + + | Religion Affiliation | 1076 | + + + | Race | Unknown | + + + | Ethnic Group | Unknown | + + + Author + + + | Author | [facility] | | | and Zohaibana | + + + | Organization | [facility] | | | and Zohaibana [...] [place], [place] | | | | | [address] | | + + + + + | Queenie Sánchez | ECON | [place], [place] | | | | | [address] | | + + + + + Care Team Providers + +------+ + | Care Corner Trimmer Operator Name | Role | Phone | + [...] | | | + +--------+ +--------+-------+---------+--------+ | [facility] | IHS | [id number] | 04/03/20 | | | Indemn | [...] | | atul/Jean | | 1971 | [phone] | [place] [address] | | | michelle | | | 2 (Home) | | + +--------+ +--------+ + + Advance Directives + + + + + | Type | Date Recorded | Patient | Explanation | | | | Electrical Machine Builder | | + + + + + | Power of | | | | | Raw Cheese Worker | | | | + + + + +"
--- OUTSIDE RECORDS SUMMARY | ~2019-08-03 | XMS | Encounter Summary ---
Demographics + + + | Address | [address] | | | [place] [address] | + + + | Home Phone | | + + + | Preferred Language | Unknown | + + + | Marital Status | Single | + + + | Quaker Affiliation | 1076 | + + + | Race | Unknown | + + + | Ethnic Group | Unknown | + + + Author + + + | Author | [facility] | | | and Zohaibana | + + + | Organization | [facility] | | | and Zohaibana [...] [place], [place] | | | | | [address] | | + + + + + | Queenie Dumas | ECON | [place] | | | | | [address] | | + + + + + Care Team Providers + +------+ + | Care Police Aide Name | Role | Phone | + +------+ + PCP | Unavailable | + +------+ + Encounter Details +--------+ + + + + | Date | Type | Department | Care Team | Description | +--------+ + + + + | 04/22/ | Hospital | [facility] | Johnson Burr, | | | 2011 - | Encounter | [facility] | [address] | | | | | [address] [place] | [place], [place] | | | 04/24/ | | [place] [address] | [phone] | | | 2011 | | [phone] | [phone] | | | | | | | | | | | | Abdi Del Rio MD | | | | | | [address] | | | | | | [place], [place] | | | | | | [address] | | | | | | | [...] Rio MD - 04/24/2012 12:36 [place] [address] Patient Name: HUSEYIN DUMAS Provider: Johnson Burr MD Unit #: [id number] Location : [address] [place] [address] #: [id number] : [id number] ADMISSION DATE: 04/22/2012 DISCHARGE DATE: [...] Thursday and went into the hospital in [place], and then he refused to go back to detox , and she tried to help at home, but that did not work, and that is why he ended up here. His girlfriend is Yung. The patient 's sister was not able to meet with me, but she is a nurse at the [facility], and th e tentative plan, I understand, is they are trying to get him into the treatment program [facility] in [facility], probably Thursday. The patient says he does [...] Del Rio MD Internal Medicine JOB #: [id number] EXT JOB #:[id number] cc: Johnson Burr MD [facility] <<Signature on File>> Abdi Del Rio MD0 [...] (L) | 7 - 18 mg/dL | [facility] | | | | | | [facility] | | [facility] | [facility] | | | | | | [facility] - | | | | | | LABORATORY | | + + + + + + | Creatinine | 0.68 | 0.60 - 1.30 | [facility] | | | | | mg/dL | [facility] | | | | | | MEDICAL | | | | | | CENTER - | | | | | | LABORATORY | | + + + + + + | Estimated | >60Comment: For | >60 mL/min/A | [facility] | | | GFR | -Americans, | [...] + | [facility] | [address] | [place] | [phone] | | [facility] | | [address] | | | - LABORATORY | | | | + + + + + | [facility] | [address] | [place], [place] | | | [facility] | | [address] | | | - LABORATORY | | [...] + + | Performing | Address | City/State[facility] | Phone Number | | Organization | | | | + + + + + | [facility] | [address] | [place] | [phone] | | [facility] | | [address] | | | - LABORATORY | | | | + + + + + | [facility] | [address] | [place] | | | [facility] | | [address] | | | - LABORATORY | | [...] [facility] | | | | | | [facility] | | | | | | MEDICAL | | | | | | CENTER - | | | | | | LABORATORY | | + + + + + + | RBC | 3.86 (L) | 4.30 - 5.70 | [facility] | | | | | M/uL | [facility] | | | | | | MEDICAL [...] + | [facility] | [address] | [place], [place] | [phone] | | [facility] | | [address] | | | - LABORATORY | | | | + + + + + | [facility] | [address] | [place], [place] | | | [facility] | | [address] | | | - LABORATORY | | [...] [address] | [place] | [phone] | | [facility] | | [address] | | | - LABORATORY | | | | + + + + + | [facility] | [address] | [place] | | | [facility] | | [address] | | | - LABORATORY | | [...] + | [facility] | [address] | [place], [place] | [phone] | | [facility] | | [address] | | | - LABORATORY | | | | + + + + + | [facility] | [address] | [place], [place] | | | [facility] | | [address] | | | - LABORATORY | | [...] + | [facility] | [address] | [place] | [phone] | | [facility] | | [address] | | | - LABORATORY | | | | + + + + + | [facility] | [address] | [place] | | | [facility] | | [address] | | | - LABORATORY | | [...] + | [facility] | [address] | [place], [place] | [phone] | | [facility] | | [address] | | | - LABORATORY | | | | + + + + + | [facility] | [address] | [place], [place] | | | [facility] | | [address] | | | - LABORATORY | | [...] + | [facility] | [address] | [place] | [phone] | | [facility] | | [address] | | | - LABORATORY | | | | + + + + + | [facility] | [address] | [place] | | | [facility] | | [address] | | | - LABORATORY | | [...] + | [facility] | [address] | [place], [place] | [phone] | | [facility] | | [address] | | | - LABORATORY | | | | + + + + + | [facility] | [address] | [place], [place] | | | [facility] | | [address] | | | - LABORATORY | | [...] [address] | [place] | [phone] | | [facility] | | [address] | | | - LABORATORY | | | | + + + + + | [facility] | [address] | [place] | | | [facility] | | [address] | | | - LABORATORY | | [...] + | [facility] | [address] | [place] | [phone] | | [facility] | | [address] | | | - LABORATORY | | | | + + + + + | [facility] | [address] | [place] | | | [facility] | | [address] | | | - LABORATORY | | [...] [address] | [place] | [phone] | | [facility] | | [address] | | | - LABORATORY | | | | + + + + + | [facility] | [address] | [place] | | | [facility] | | [address] | | | - LABORATORY | | | | + + + + + documented in this encounter Visit Diagnoses Not on filedocumented in this encounter"
[~2019-08-03 17:32] MED LIST: MAGNESIUM250 MG PO; MULTIVITAMINS1 EAC8 PO
--- NOTE | 2019-08-03 19:49 | EKG ---
[facility] [address] [facility] [place], [place] [address] Signed Normal sinus rhythm Normal ECG No previous ECGs available Confirmed by HOANG GARZON MD ([id number]) on 08/03/2019 7:49:00 PM Electronically Signed By: HOANG GARZON MD 08/03/19 194 PATIENT NAME: HUSEYIN DUMAS Electrocardiogram DATE OF : 68 PHYSICIAN: HOANG GARZON MD REPORT #: [id number] REPORT IS CONFIDENTIAL AND NOT TO BE RELEASED WITHOUT AUTHORIZATION
== END 2019-08-03 20:41 | disposition home or self-care (01) ==
LOC: ED 17:32
DX: F10.239 Alcohol dependence with withdrawal, unspecified (principal); I10 Essential (primary) hypertension
CPT/HCPCS: 80053; 81001; 83735; 84484; 85025; 93005; 93010; 96361; 96374; 99284-25; G0480; J2060; J7030

== ENCOUNTER 2019-11-08 12:56 | Emergency (ER) | payer OTHER ==
[~2019-11-08] VITALS: Ht 180.3 cm; Wt 79.4 kg
[2019-11-08] MEDS ORDERED: LISINOPRIL10 MG PO (13:07)
[2019-11-08] MEDS ORDERED: ONDANSETRON ODT8 MG PO (16:52)
== END 2019-11-08 17:27 | disposition home or self-care (01) ==
LOC: ED 12:56
DX: G40.509 Epileptic seizures related to external causes, not intractable, without status epilepticus (principal); K70.9 Alcoholic liver disease, unspecified; I10 Essential (primary) hypertension; F17.200 Nicotine dependence, unspecified, uncomplicated; Z79.899 Other long term (current) drug therapy
CPT/HCPCS: 80053; 81001; 83735; 85025; 96374; 96375; 96376; 99284-25; G0480; J2060; J3411; J7030

== ENCOUNTER 2020-01-31 09:10 | Observation (INO) | payer OTHER ==
[~2020-01-31] VITALS: Ht 180.3 cm; Wt 92.5 kg
--- OUTSIDE RECORDS SUMMARY | ~2020-01-31 | XMS | Clinical Summary ---
Demographics + + + | Address | [address] | | | [place] [address] | + + + | Home Phone | | + + + | Preferred Language | Unknown | + + + | Marital Status | Single | + + + | Amish Affiliation | [id number] | + + + | Race | Unknown | + + + | Ethnic Group | Unknown | + + + Author + + + | Author | [facility] | | | and [place] | + + + | Organization | [facility] | | | and [place] | + + + | Address | Unknown | + + + | Phone | Unavailable | + + + Support + + + + + | Name | Relationship | Address | Phone | + + + + + | Yung Perrin | ECON | [address] | | | | | [place], [place] | | | | | [address] | | + + + + + | Queenie Sánchez | ECON | [place], [place] | | | | | [address] | | + + + + + Care Team Providers + +------+ + | Care Director Drug Safety Name | Role | Phone | + [...] | | | + +--------+ +--------+-------+---------+--------+ | [facility] | [facility] | [phone] | 04/03/20 | | | Indemn | [...] | | al/Jean | | 1971 | [phone] | [place] [address] | | | michelle | | | 2 (Home) | | + +--------+ +--------+ + + Advance Directives + + + + + | Type | Date Recorded | Patient | Explanation | | | | Forwarder Operator | | + + + + + | Power of | | | | | Chain Sales Consultant | | | | + + + + +"
--- OUTSIDE RECORDS SUMMARY | ~2020-01-31 | XMS | Encounter Summary ---
Demographics + + + | Address | [address] | | | [place] [address] | + + + | Home Phone | | + + + | Preferred Language | Unknown | + + + | Marital Status | Single | + + + | Mormon Affiliation | [id number] | + + + | Race | Unknown | + + + | Ethnic Group | Unknown | + + + Author + + + | Author | [facility] | | | and Zohaibana | + + + | Organization | [facility] | | | and [place]oha[place]ana [...] [place], [place] | | | | | [address] | | + + + + + | Queenie Sánchez | ECON | [place] | | | | | [address] | | + + + + + Care Team Providers + +------+ + | Care Sustainable Landscape Architect Name | Role | Phone | + +------+ + PCP | Unavailable | + +------+ + Encounter Details +--------+ + + + + | Date | Type | Department | Care Team | Description | +--------+ + + + + | 04/22/ | Hospital | [facility] | Johnson Burr, | | | 2011 - | Encounter | MED CTR SURGICAL | [address] | | | | | [address] [place] | [place], [place] | | | 04/24/ | | [place] [address] | [phone] | | | 2011 | | [phone] | [phone] | | | | | | | | | | | | Abdi Del Rio MD | | | | | | [address] | | | | | | [place], [place] | | | | | | [address] | | | | | | | [...] Del Rio MD - 04/24/2012 12:36 [place] [address] Patient Name: HUSEYIN SÁNCHEZ Provider: Johnson Burr MD Unit #: [id number] Location : [address] [place] [address] #: [id number] : 1970 ADMISSION DATE: 04/22/2012 DISCHARGE DATE: [...] Thursday and went into the hospital in [place], and then he refused to go back to detox , and she tried to help at home, but that did not work, and that is why he ended up here. His girlfriend is Ynug. The patient 's sister was not able to meet with me, but she is a nurse at the [facility], and th e tentative plan, I understand, is they are trying to get him into the treatment program [facility] in [facility], probably Thursday. The patient says he does [...] Del Rio MD Internal Medicine JOB #: [id number] EXT JOB #:[id number] cc: Johnson Burr MD [facility] <<Signature on File>> Abdi Del Rio MD0 04/25/12 0645 < documented in this encounter H&P Notes Johnson Burr MD - 04/22/2012 8:43 [place] [address] Patient Name: HUSEYIN SÁNCHEZ Provider: Johnson Burr MD Unit #: [id number] Location : [address] [place] [address] #: [id number] : 1970 DATE: 04/22/2012 CHIEF COMPLAINT: Alcohol [...] co nfusion. Apparently, he was brought to [facility] in [place] early this [facility] , was prescribed benzodiazepines and then discharged [...] been taking this. 3. He also has [place]-3 fatty acid ordered, but he does not [...] HYPERLIPIDEMIA. Will have him continue his fenofibrate, [place]-3 fatty acids as an outpat ient. 5. DEEP VEIN THROMBOSIS PROPHYLAXIS is enoxaparin. 6. CODE STATUS IS FULL. DICTATED BY: Johnson Burr MD Hospitalist JOB #: [id number] EXT JOB #:[id number] cc: Kwadwo Bear MD <<Signature on File>> Bakari Pearce D004/23/12 0006 < documented in thi s encounter ED Notes Hai Pires MD - 04/22/2012 10:01 [place] [address] Patient Name: HUSEYIN SÁNCHEZ Provider: Johnson Burr MD Unit #: [id number] Location : [facility] : 1970 DATE: 04/22/2012 ADDENDUM This is [...] Hai Pires M.D. Emergency Medicine JOB #: [id number] EXT JOB #:[id number] EDITED: 04/26/2012 07:34 <<Signature on File>> Hai Pires MD1 1527 < wadwo Bear MD - 04/22/2012 3:29 PM PDT [place], [place] [id number] Patient Name: HUSEYIN SÁNCHEZ Provider: Johnson Burr MD Unit #: [id number] Location : [facility] : 1970 DATE: 04/22/2012 HISTORY OF PRESENT [...] ambulatory, [facility] REVIEW OF SYSTEMS: Complete review of [...] patient is to follow up at the [facility] for worsening withdrawal. He is to return for any worsening symptoms. CLINICAL IMPRESSION 1. ETOH WITHDRAWAL. 2. VISUAL HALLUCINATIONS. 3. ACUTE AGITATION. DICTATED BY: Kwadwo Bear MD Emergency Medicine JOB #: [id number] EXT JOB #:[id number] <<Signature on File>> Kwadwo Bear MD04/24/12 1543 [...] + | [facility] | [address] | [place] | [phone] | | [facility] | | [id number] | | | - LABORATORY | | | | + + + + + | [facility] | [address] | [place] | | | [facility] | | [id number] | | | - LABORATORY | [...] + | [facility] | [address] | [place], [place] | [phone] | | [facility] | | [address] | | | - LABORATORY | | | | + + + + + | [facility] | [address] | [place], [place] | | | [facility] | | [address] [place] [address] | | | - LABORATORY | | [...] + | [facility] | [address] | [place], [place] | [phone] | | [facility] | | [id number] | | | - LABORATORY | | | | + + + + + | [facility] | [address] | [place], [place] | | | [facility] | | [id number] | | | - LABORATORY | | [...] [address] | [place] | [phone] | | [facility] | | [address] | | | - LABORATORY | | | | + + + + + | [facility] | [address] | [place] | | | [facility] | | [id number], [facility] | | | - LABORATORY | [...] + | [facility] | [address] | [place], [place] | [phone] | | [facility] | | [address] | | | - LABORATORY | | | | + + + + + | [facility] | [address] | [place], [place] | | | [facility] | | [id number] [place] [address] | | | - LABORATORY | | [...] + | [facility] | [address] | [place], [place] | [phone] | | [facility] | | [address] | | | - LABORATORY | | | | + + + + + | [facility] | [address] | [place], [place] | | | [facility] | | [address], [facility] | | | - LABORATORY | [...] + | [facility] | [address] | [place] | [phone] | | [facility] | | [address] | | | - LABORATORY | | | | + + + + + | [facility] | [address] | [place] | | | [facility] | | [id number] | | | - LABORATORY | [...] + | [facility] | [address] | [place], [place] | [phone] | | [facility] | | [address] | | | - LABORATORY | | | | + + + + + | [facility] | [address] | [place], [place] | | | [facility] | | [id number] | | | - LABORATORY | [...] + | [facility] | [address] | [place] | [phone] | | [facility] | | [address] | | | - LABORATORY | | | | + + + + + | [facility] | [address] | [place] | | | [facility] | | [address], [facility] | | | - LABORATORY | [...] + | [facility] | [address] | [place] | [phone] | | [facility] | | [address] | | | - LABORATORY | | | | + + + + + | [facility] | [address] | [place] | | | [facility] | | [id number] | | | - LABORATORY | [...] + | [facility] | [address] | [place], [place] | [phone] | | [facility] | | [address] | | | - LABORATORY | | | | + + + + + | [facility] | [address] | [place], [place] | | | [facility] | | [address], [facility] | | | - LABORATORY | [...] [address] | [place] | [phone] | | [facility] | | [address] | | | - LABORATORY | | | | + + + + + | [facility] | [address] | [place] | | | [facility] | | [id number] | | | - LABORATORY | | | | + + + + + documented in this encounter Visit Diagnoses Not on filedocumented in this encounter
[~2020-01-31 09:10] MED LIST changes: +LISINOPRIL10 MG PO; +ONDANSETRON ODT8 MG PO
--- OUTSIDE RECORDS SUMMARY | 2020-01-31 11:22 | XMS | Clinical Summary ---
Demographics + + + | Address | [address] | | | [place] [address] | + + + | Home Phone | | + + + | Preferred Language | Unknown | + + + | Marital Status | Single | + + + | Holiness Affiliation | 1076 | + + + | Race | Unknown | + + + | Ethnic Group | Unknown | + + + Author + + + | Author | [facility] | | | and Zohaibana | + + + | Organization | [facility] | | | and [place] | + + + | Address | Unknown | + + + | Phone | Unavailable | + + + Support + + + + + | Name | Relationship | Address | Phone | + + + + + | Yung Perrin | ECON | [address] | | | | | [place], [place] | | | | | [address] | | + + + + + | Queenie Sánchez | ECON | [place], [place] | | | | | [address] | | + + + + + Care Team Providers + +------+ + | Care Teletypist Name | Role | Phone | + +------+ + | No, Unknownpcp | PCP | | + +------+ + Allergies Not on File Medications Not on file Active Problems Not on file Social History + +-------+ +--------+------+ | Tobacco Use | Types | Packs/Day | Years | Date | | | | | Used | | + +-------+ +--------+------+ | Never Assessed | | | | | + +-------+ +--------+------+ + + + | Sex Assigned at | Date Recorded | | | | + + + | Not on file | | + + + Last Filed Vital Signs Not on file Plan of Treatment + + +-------+ + | Health Maintenance | Due Date | Last | Comments | | | | Done | | + + +-------+ + | Vaccine: | | | | | Dtap/Tdap/Td (1 - | 9 | | | | Tdap) | | | | + + +-------+ + | Vaccine: Zoster (1 | | | | | of 2) | 0 | | | + + +-------+ + | Vaccine: Influenza | | | | | (#1) | 0 | | | + + +-------+ + Results Not on filefrom Last 3 Months Insurance + +--------+ +--------+-------+---------+--------+ | Payer | Benefi | Subscriber | Effect | Phone | Address | Type | | | t Plan | ID | jenny | | | | | | / | | Dates | | | | | | Group | | | | | | + +--------+ +--------+-------+---------+--------+ | [employer] | [employer] | [id number] | 04/03/20 | | | Indemn | | SERVICE | YELLOW | | 12-Pre | | | ity | | | HAWK | | sent | | | | + +--------+ +--------+-------+---------+--------+ + +--------+ +--------+ + + | Guarantor Name | Accoun | Relation to | Date | Phone | Billing Address | | | t Type | Patient | of | | | | | | | | | | + +--------+ +--------+ + + | Neptali Sánchez | Person | Self | [birth year] | [address] | | | [place] | | 1971 | [phone] | [place] [address] | | | michelle | | | 2 (Home) | | + +--------+ +--------+ + + Advance Directives + + + + + | Type | Date Recorded | Patient | Explanation | | | | Rfid Systems Architect | | + + + + + | Power of | | | | | Pulp Grinder | | | | + + + + +"
--- OUTSIDE RECORDS SUMMARY | 2020-01-31 11:22 | XMS | Encounter Summary ---
Demographics + + + | Address | [address] | | | [place] [address] | + + + | Home Phone | | + + + | Preferred Language | Unknown | + + + | Marital Status | Single | + + + | Temple Affiliation | 1076 | + + + | Race | Unknown | + + + | Ethnic Group | Unknown | + + + Author + + + | Author | [facility] | | | and [place]oha[place] | + + + | Organization | [facility] | | | and [place] | + + + | Address | Unknown | + + + | Phone | Unavailable | + + + Support + + + + + | Name | Relationship | Address | Phone | + + + + + | Yung Perrin | ECON | [address] | | | | | [place], [place] | | | | | [address] | | + + + + + | Queenie Sánchez | ECON | [place] | | | | | [address] | | + + + + + Care Team Providers + +------+ + | Care Rnp Name | Role | Phone | + +------+ + PCP | Unavailable | + +------+ + Encounter Details +--------+ + + + + | Date | Type | Department | Care Team | Description | +--------+ + + + + | 04/22/ | Hospital | [facility] | Johnson Burr, | | | 2011 - | Encounter | MED CTR SURGICAL | [address] | | | | | [address] [place] | [place], [place] | | | 04/24/ | | [place] [address] | [address] | | | 2011 | | [phone] | [phone] | | | | | | | | | | | | Abdi Del Rio MD | | | | | | [address] | | | | | | [place], [place] | | | | | | [address] | | | | | | | | +--------+ + + + + Social History + +-------+ +--------+------+ | Tobacco [...] on file | | + + + documented as of this encounter Discharge Summaries Abdi Del Rio MD - 04/24/2012 12:36 [place] [address] Patient Name: HUSEYIN SÁNCHEZ Provider: Johnson Burr MD Unit #: [id number] Location : [address] [address] #: [id number] : 1970 ADMISSION DATE: 04/22/2012 DISCHARGE DATE: 04/24/2012 REASON FOR ADMISSION: Alcohol withdrawal with hallucinations and delirium tremens. FINAL DIAGNOSIS: Alcohol withdrawal with hallucinations and delirium tremens. ADDITIONAL DIAGNOSES: Please see H and P, but he has hypercholesterolemia as well as hypert ension. HOSPITAL COURSE: The patient was admitted to the hospital. He was treated with the alcohol withdrawal protocol, as well as vitamins. He required scant amount of Ativan his last 2 da ys. He felt ready to go home and I talked with both him and his girlfriend, who will monito r his medication use. She also clarified that he quit drinking last week and went into the detox program on Thursday, but he was doing pretty bad by Thursday and went into the hospital in [place], and then he refused to go back to detox , and she tried to help at home, but that did not work, and that is why he ended up here. His girlfriend is Yung. The patient 's sister was not able to meet with me, but she is a nurse at the [facility], and th e tentative plan, I understand, is they are trying to get him into the treatment program [facility] in [facility], probably Thursday. The patient says he does not take trazodone, that was just from the detox. Also, he believe s his lisinopril dose at home is 10 mg, but his girlfriend will confirm. DISPOSITION: The patient to be discharged to home with his girlfriend, in improved conditi on. MEDICATIONS 1. Fenofibrate 134 mg daily. 2. Fish oil 1 capsule daily, probably 1000 mg. 3. Lisinopril 10 mg daily. 4. Theragran vitamin daily. 5. Thiamine 100 mg daily x7 days. 6. Ativan 1 mg tablets, he will take half or a whole tablet twice a day p.r.n. anxiety or w ithdrawal. He should not need more than 8 tablets. TOTAL TIME ON DISCHARGE: Between morning and afternoon, more than 30 minutes. DICTATED BY: Abdi Del Rio MD Internal Medicine JOB #: [id number] EXT JOB #:[id number] cc: Johnson Burr MD [facility] <<Signature on File>> Abdi Del Rio MD0 04/25/12 0645 < documented in this encounter H&P Notes Johnson Burr MD - 04/22/2012 8:43 [place] [address] Patient Name: HUSEYIN SÁNCHEZ Provider: Johnson Burr MD Unit #: [id number] Location : [address] [place] [address] #: [id number] : 1970 DATE: 04/22/2012 CHIEF COMPLAINT: Alcohol withdrawal. HISTORY OF PRESENT ILLNESS: Mr. Sánchez is a 41-year-old man with a history of alcoholism , hypertension, borderline diabetes, depression, hyperlipidemia who presents with visual ruggiero llucinations and agitation 4-5 days after stopping alcohol. Mr. Sánchez was quite drowsy and unable to give much history, but apparently he has been concerned about his alcohol int jacquelin, which has been at least 12 beers a day recently. His food intake has decreased as his alcohol intake has increased, and he has lost about 40 pounds over the last 2 years (220 - > 180 lbs, according to him). He decided to stop drinking 3-4 days ago and afterwards star puneet having withdrawal symptoms including visual hallucinations , tremors, agitation, and co nfusion. Apparently, he was [facility] to [facility] [place] [facility] , was prescribed benzodiazepines and then discharged home. His family remained concerned and brought him to the emergency room today. Upon arrival in the emergency room, he was kalee tated, tremulous and having visual hallucinations. He was given 2 mg of lorazepam, 50 mg of Benadryl , 20 mg of Geodon and 5 mg of IV haloperidol. He was somewhat somnolent afterwards and is being admitted for delirium tremens and acute alcohol withdrawal. REVIEW OF SYSTEMS GENERAL: He denies fever or chills or recent falls. As above, he has lost 40 pounds in the last 2 years because of decreased food intake. HEENT: No blurry vision, no acute problems in his mouth. CARDIAC: No chest pain or palpitations. PULMONARY: No shortness of breath or cough. GASTROINTESTINAL: No nausea, vomiting, constipation or diarrhea. He has had a very poor vickie etite. GENITOURINARY: No hematuria or dysuria. MUSCULOSKELETAL: No new muscle or joint pain. SKIN: No new rashes or lesions. NEUROLOGIC: His legs feel weak but no other focal neurologic deficits. He does have a tremo r. PSYCHIATRIC: He has been feeling depressed since the of his father 2 years ago. ENDOCRINE: He has reported borderline diabetes mellitus. HEMATOLOGY: No bruising or bleeding. PAST MEDICAL HISTORY: 1. Alcoholism. 2. Hypertension. 3. History of borderline diabetes. 4. Depression. 5. Hyperlipidemia. PAST SURGICAL HISTORY: He has had multiple fractures playing competitive sports but denies any surgeries. MEDICATIONS: 1. Lisinopril 40 mg daily is ordered. He takes this roughly every other day. 2. Fenofibra te 134 mg a day is ordered, but he has not been taking this. 3. He also has [place]-3 fatty acid ordered, but he does not believe he is taking this. 4. He states he may be taking one other medication but is not sure what it is. ALLERGIES: NO KNOWN DRUG ALLERGIES. SOCIAL HISTORY: He works heavy equipment. He is with no children. He lives by hims elf in a house. He smokes 1 pack a week. He drinks 12 beers a day. He denies illicits inclu ding marijuana and has no history of IV drug use. FAMILY HISTORY: His mother and father also had alcoholism. His mother had a coronary artery bypass graft. PHYSICAL EXAMINATION VITAL SIGNS: On arrival, blood pressure 105/69, heart rate 84, respiratory rate 20, tempera ture is 36.8 , and oxygen saturation 95% on room air. GENERAL: He is tremulous, drowsy, and a somewhat poor historian, although oriented to perso n and time, but not location. 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 He appears relatively w ell developed, well nourished. HEENT: Moist mucous membranes. No scleral icterus. CARDIAC: Tachycardic, regular rate. No murmurs, rubs, or gallops. PULMONARY: Clear to auscultation bilaterally. GASTROINTESTINAL: Soft, nontender, nondistended. Bowel sounds are present. EXTREMITIES: Warm and well perfused with 2+ dorsal pedal pulses. NEUROLOGIC: He has a diffuse tremor. LABORATORY DATA: Chem-7 shows sodium 129, potassium 3.3, chloride 98, bicarbonate 22, BUN 5 , creatinine 0.7, glucose 113. Liver function tests show an AST of 176, ALT of 82, alkaline phosphatase of 99, albumin of 3.2, total protein of 7.1, total bilirubin of 0.9. CPK is 29 5. Ammonia level is 39. CBC shows a white count of 6.4, hematocrit of 37.8, platelets of 15 1. Magnesium is 1.6. ASSESSMENT AND PLAN: 1. ACUTE ALCOHOL WITHDRAWAL WITH DELIRIUM TREMENS. Mr. Sánchez admits to alcoholism, has been drinking 12 beers a day with apparently little food intake. He is currently having wit hdrawals, and given his visual hallucinations, tremor, weakness, he is not able to go home at this time. Will admit on CIWA protocol and give lorazepam as needed for withdrawal sympt oms. He states he is committed to stopping alcohol and understands that it is a major probl em for him. Will give him IV vitamin, folate and thiamine tonight and daily. 2. MALNUTRITION. He has lost 40 pounds apparently unintentionally in the last 2 years and h as little food intake. His albumin is low, and his sodium, potassium and magnesium are low as well. Will replete his potassium and magnesium, give IV fluids overnight. Will give a r egular diet and encourage adequate intake. 3. HYPERTENSION. His blood pressure was actually normal on arrival. Will monitor closely an d give lisinopril if his blood pressure is high. 4. HYPERLIPIDEMIA. Will have him continue his fenofibrate, [place]-3 fatty acids as an outpat ient. 5. DEEP VEIN THROMBOSIS PROPHYLAXIS is enoxaparin. 6. CODE STATUS IS FULL. DICTATED BY: Johnson Burr MD Hospitalist JOB #: [id number] EXT JOB #:[id number] cc: Kwadwo Bear MD <<Signature on File>> Bakari Pearce D004/23/12 0006 < documented in thi s encounter ED Notes Hai Pires MD - 04/22/2012 10:01 [place] [address] Patient Name: HUSEYIN SÁNCHEZ Provider: Johnson Burr MD Unit #: [id number] Location : [facility] : 1970 DATE: 04/22/2012 ADDENDUM This is a 41-year-old male who was signed out to me by Dr. Bear. He was noted by Dr. Niya marshall to have come in in alcohol withdrawal and had been hallucinating and apparently combative to some degree. He was given Ativan, Geodon, Benadryl and Zyprexa and is now asleep. Dr. Elvie causey had stated that the patient would likely be able to go home with family members, narinder paulson outpatient detox as he had Librium at home. The patient, on my examination, remained se dated after medication. I talked to his family and they stated his hallucinations and his c ombativeness at home was significant. I am concerned the patient is having severe alcohol w ithdrawal symptoms and will likely need inpatient benzodiazepine therapy, so I will talk to the hospitalist and they will admit him on a CIWA protocol to control his hallucinatory de lirium symptoms related to alcohol withdrawal. DICTATED BY: Hai Pires M.D. Emergency Medicine JOB #: [id number] EXT JOB #:[id number] EDITED: 04/26/2012 07:34 <<Signature on File>> Hai Pires MD1 1527 < wadwo Bear MD - 04/22/2012 3:29 PM PDT [place], [place] [id number] Patient Name: HUSEYIN SÁNCHEZ Provider: Johnson Burr MD Unit #: [id number] Location : [facility] : 1970 DATE: 04/22/2012 HISTORY OF PRESENT ILLNESS: This is a 41-year-old male who presents to the emergency room with severe agitation. He has been withdrawing from alcohol for the last 4 to 5 days. He ruggiero s been hallucinating. He been seeing visual hallucinations. He has also been hearing voices . He does not appear suicidal or want to hurt anyone, but he appears to be in distress from his ETOH withdrawal. The patient is ambulatory, [facility] REVIEW OF SYSTEMS: Complete review of systems completed by me, all components are negative . PAST MEDICAL HISTORY: Hypertension. MEDICATIONS: Include 1. Fatty acids. 2. Ativan. 3. Lisinopril. 4. Fenofibrate. ALLERGIES: NONE. PHYSICAL EXAMINATION VITAL SIGNS: Blood pressure is 105/69, heart rate of 84, respirations 20, O2 saturation 95 %, temperature is 36. HEENT: Pupils equal, round and reactive to light. Extraocular movements intact. NECK: Supple, nontender, no lymphadenopathy. RESPIRATORY: Equal breath sounds bilaterally. No wheezing, rales or rhonchi. CARDIOVASCULAR: Regular rate and rhythm. ABDOMEN: Nontender, no organomegaly. Normal bowel sounds. EXTREMITIES: Nonfocal. Full range of motion. NEUROLOGIC: He has a central tremor with movement of his extremities. He has full strength and some loss of coordination at this point of all extremities. He is ambulatory without a ssistance. A and O x3. Cranial nerves 2 through 12 intact. FURTHER DISCUSSION: The patient had laboratory work performed in the emergency room. White count of 6.4, hemoglobin 13.1, hematocrit 37.8, platelets of 151. His ammonia level is 39. Chemistry panel: Sodium 129, potassium 3.3, bicarbonate 22, BUN 5, creatinine 0.67, glucos e of 113, CPK is 295. The patient was given Ativan 2 mg IV followed by 50 mg of Benadryl wi th no effect. He also received Geodon 20 mg p.o. as well as haloperidol 5 mg IV. At this po int, the patient did become belligerent in the emergency room. Ten minutes later he is slee ping comfortably. The patient's family are still here at the bedside. They are interested i n further medications that may help ease his agitation at home. Haloperidol 5 mg tablets w ill be written for home use for a short course. The patient is to follow up at the [facility] for worsening withdrawal. He is to return for any worsening symptoms. CLINICAL IMPRESSION 1. ETOH WITHDRAWAL. 2. VISUAL HALLUCINATIONS. 3. ACUTE AGITATION. DICTATED BY: Kwadwo Bear MD Emergency Medicine JOB #: [id number] EXT JOB #:[id number] <<Signature on File>> Kwadwo Bear MD04/24/12 1543 < documented in this encounter Plan of Treatment Not on filedocumented as of this encounter Procedures + +--------+ + + + | Procedure Name | Priori | Date/Time | Associated Diagnosis | Comments | | | ty | | | | + +--------+ + + + | CBC NO DIFFERENTIAL | Routin | 04/24/2012 | | Results for this | | | e | 6:20 AM | | procedure are in the | | | | PDT | | results section. | + +--------+ + + + | MAGNESIUM | Routin | 04/24/2012 | | Results for this | | | e | 6:20 AM | | procedure are in the | | | | PDT | | results section. | + +--------+ + + + | BASIC METABOLIC | Routin | 04/24/2012 | | Results for this | | PANEL | e | 6:20 AM | | procedure are in the | | | | PDT | | results section. | + +--------+ + + + | CBC NO DIFFERENTIAL | Routin | 04/23/2012 | | Results for this | | | e | 6:38 AM | | procedure are in the | | | | PDT | | results section. | + +--------+ + + + | MAGNESIUM | Routin | 04/23/2012 | | Results for this | | | e | 6:38 AM | | procedure are in the | | | | PDT | | results section. | + +--------+ + + + | BASIC METABOLIC | Routin | 04/23/2012 | | Results for this | | PANEL | e | 6:38 AM | | procedure are in the | | | | PDT | | results section. | + +--------+ + + + | CBC WITH | Routin | 04/22/2012 | | Results for this | | DIFFERENTIAL | e | 11:49 AM | | procedure are in the | | | | PDT | | results section. | + +--------+ + + + | MAGNESIUM | Routin | 04/22/2012 | | Results for this | | | e | 11:49 AM | | procedure are in the | | | | PDT | | results section. | + +--------+ + + + | LIPASE | Routin | 04/22/2012 | | Results for this | | | e | 11:49 AM | | procedure are in the | | | | PDT | | results section. | + +--------+ + + + | CK TOTAL | Routin | 04/22/2012 | | Results for this | | | e | 11:49 AM | | procedure are in the | | | | PDT | | results section. | + +--------+ + + + | AMMONIA | Routin | 04/22/2012 | | Results for this | | | e | 11:49 AM | | procedure are in the | | | | PDT | | results section. | + +--------+ + + + | COMPREHENSIVE | Routin | 04/22/2012 | | Results for this | | METABOLIC PANEL | e | 11:49 AM | | procedure are in the | | | | PDT | | results section. | + +--------+ + + + documented in this encounter Results Basic Metabolic Panel (04/24/2012 6:20 AM PDT) + + + + + + | Component | Value | Ref Range | Performed | Pathologist | | | | | At | Signature | + + + + + + | Glucose | 102 | 70 - 109 mg/dL | [facility] | | | | | | [facility] | | | | | | [facility] | | | | | | [facility] - | | | | | | LABORATORY | | + + + + + + | Calcium | 9.1 | 8.3 - 10.5 | [facility] | | | | | mg/dL | [facility] | | | | | | [facility] | | | | | | C[facility] - | | | | | | LABORATORY | | + + + + + + | BUN | 6 (L) | 7 - 18 mg/dL | [facility] | | | | | | [facility] | | | | | | [facility] | | | | | | [facility] - | | | | | | LABORATORY | | + + + + + + | Creatinine | 0.68 | 0.60 - 1.30 | [facility] | | | | | mg/dL | [facility] | | | | | | [facility]ICAL | | | | | | CENTER - | | | | | | LABORATORY | | + + + + + + | Estimated | >60Comment: For | >60 mL/min/A | [facility] | | | GFR | -Americans, | | . [facility] | | | | please multiply the | | MEDICAL | | | | result by 1.210 | | CENTER - | | | | This is an estimated | | LABORATORY | | | | GFR and is based on a | | | | | | standard adult | | | | | | body mass (A=1.73m2) and | | | | | | serum creatinine | | | | + + + + + + | BUN/Creatin | 8.8 (L) | 12 - 20 | [facility] | | | ine Ratio | | | [facility] | | | | | | MEDICAL | | | | | | CENTER - | | | | | | LABORATORY | | + + + + + + | Na | 135 (L) | 136 - 149 mEq/L | [facility] | | | | | | [facility] | | | | | | [facility] | | | | | | CENTER - | | | | | | LABORATORY | | + + + + + + | K | 3.8 | 3.5 - 5.1 mEq/l | [facility] | | | | | | [facility] | | | | | | [facility]ICAL | | | | | | CENTER - | | | | | | LABORATORY | | + + + + + + | Cl | 102 | 98 - 109 mEq/l | [facility] | | | | | | [facility] | | | | | | [facility]ICAL | | | | | | CENTER - | | | | | | LABORATORY | | + + + + + + | CO2 | 27 | 24 - 31 mEq/L | [facility] | | | | | | [facility] | | | | | | MEDICAL | | | | | | CENTER - | | | | | | LABORATORY | | + + + + + + | Anion Gap | 9.8 | 6.0 - 17.0 | [facility] | | | | | | [facility] | | | | | | [facility]ICAL | | | | | | CENTER - | | | | | | LABORATORY | | + + + + + + + + | Specimen | + + | | + + + + + + + | Performing | Address | City/State/Zipcode | Phone Number | | Organization | | | | + + + + + | [facility] | [address] | [place] | [phone] | | [facility] | | [address] | | | - LABORATORY | | | | + + + + + | [facility] | [address] | [place] | | | [facility] | | [id number] | | | - LABORATORY | | | | + + + + + Magnesium (04/24/2012 6:20 AM PDT) + +-------+ + + + | Component | Value | Ref Range | Performed | Pathologist | | | | | At | Signature | + +-------+ + + + | Magnesium | 1.9 | 1.8 - 2.5 mg/dL | [facility] | | | | | | [facility] | | | | | | MEDICAL | | | | | | CENTER - | | | | | | LABORATORY | | + +-------+ + + + + + | Specimen | + + | | + + + + + + + | Performing | Address | City/State/Zipcode | Phone Number | | Organization | | | | + + + + + | [facility] | [address] | [place], [place] | [phone] | | [facility] | | [address] | | | - LABORATORY | | | | + + + + + | [facility] | [address] | [place], [place] | | | [facility] | | [address] [place] [address] | | | - LABORATORY | | | | + + + + + CBC no Differential (04/24/2012 6:20 AM PDT) + + + + + + | Component | Value | Ref Range | Performed | Pathologist | | | | | At | Signature | + + + + + + | White Blood | 5.9 | 4.0 - 11.0 K/uL | [facility] | | | Cells | | | [facility] | | | | | | MEDICAL | | | | | | CENTER - | | | | | | LABORATORY | | + + + + + + | Red Blood | 3.86 (L) | 4.30 - 5.70 | [facility] | | | Cells | | M/uL | [facility] | | | | | | MEDICAL | | | | | | CENTER - | | | | | | LABORATORY | | + + + + + + | Hemoglobin | 13.7 | 13.5 - 18.0 | [facility] | | | | | gm/dL | [facility] | | | | | | MEDICAL | | | | | | CENTER - | | | | | | LABORATORY | | + + + + + + | Hematocrit | 39.1 (L) | 40.0 - 51.0 % | [facility] | | | | | | [facility] | | | | | | MEDICAL | | | | | | CENTER - | | | | | | LABORATORY | | + + + + + + | Erythrocyte | 101.3 (H) | 83.0 - 101.0 fL | [facility] | | | Mean | | | [facility] | | | Corpuscular | | | MEDICAL | | | Volume | | | CENTER - | | | | | | LABORATORY | | + + + + + + | Erythrocyte | 35.4 (H) | 28.0 - 35.0 pg | [facility] | | | Mean | | | [facility] | | | Corpuscular | | | MEDICAL | | | Hemoglobin | | | CENTER - | | | | | | LABORATORY | | + + + + + + | Erythrocyte | 34.9 | 32.0 - 36.0 | [facility] | | | Mean | | g/dL | [facility] | | | Corpuscular | | | MEDICAL | | | Hemoglobin | | | CENTER - | | | | | | LABORATORY | | | Concentrati | | | | | | on | | | | | + + + + + + | % Red Blood | 15.2 (H) | <15.0 % | [facility] | | | Cell | | | [facility] | | | Distributio | | | MEDICAL | | | n Width | | | CENTER - | | | | | | LABORATORY | | + + + + + + | Platelet | 191 (A) | 140 - 440 K/uL | [facility] | | | Count | | | [facility] | | | | | | MEDICAL | | | | | | CENTER - | | | | | | LABORATORY | | + + + + + + + + | Specimen | + + | | + + + + + + + | Performing | Address | City/State/Zipcode | Phone Number | | Organization | | | | + + + + + | [facility] | [address] | [place], [place] | [phone] | | [facility] | | [address] | | | - LABORATORY | | | | + + + + + | [facility] | [address] | [place], [place] | | | [facility] | | [id number] | | | - LABORATORY | | | | + + + + + Basic Metabolic Panel (04/23/2012 6:38 AM PDT) + + + + + + | Component | Value | Ref Range | Performed | Pathologist | | | | | At | Signature | + + + + + + | Glucose | 84 | 70 - 109 mg/dL | [facility] | | | | | | [facility] | | | | | | [facility] | | | | | | CENTER - | | | | | | LABORATORY | | + + + + + + | Calcium | 8.6 | 8.3 - 10.5 | [facility] | | | | | mg/dL | [facility] | | | | | | MEDICAL | | | | | | CENTER - | | | | | | LABORATORY | | + + + + + + | BUN | 3 (L) | 7 - 18 mg/dL | [facility] | | | | | | [facility] | | | | | | MEDICAL | | | | | | CENTER - | | | | | | LABORATORY | | + + + + + + | Creatinine | 0.72 | 0.60 - 1.30 | [facility] | | | | | mg/dL | [facility] | | | | | | MEDICAL | | | | | | CENTER - | | | | | | LABORATORY | | + + + + + + | Estimated | >60Comment: For | >60 mL/min/A | [facility] | | | GFR | -Americans, | | [facility] | | | | please multiply the | | MEDICAL | | | | result by 1.210 | | CENTER - | | | | This is an estimated | | LABORATORY | | | | GFR and is based on a | | | | | | standard adult | | | | | | body mass (A=1.73m2) and | | | | | | serum creatinine | | | | + + + + + + | BUN/Creatin | 4.2 (L) | 12 - 20 | [facility] | | | ine Ratio | | | [facility] | | | | | | MEDICAL | | | | | | CENTER - | | | | | | LABORATORY | | + + + + + + | Na | 135 (L) | 136 - 149 mEq/L | [facility] | | | | | | [facility] | | | [facility] | | MEDICAL | | | | | | CENTER - | | | | | | LABORATORY | | + + + + + + | K | 4.0 | 3.5 - 5.1 mEq/l | [facility] | | | | | | [facility] | | | | | | MEDICAL | | | | | | CENTER - | | | | | | LABORATORY | | + + + + + + | Cl | 104 | 98 - 109 mEq/l | [facility] | | | | | | [facility] | | | | | | MEDICAL | | | | | | CENTER - | | | | | | LABORATORY | | + + + + + + | CO2 | 24 | 24 - 31 mEq/L | [facility] | | | | | | [facility] | | | | | | MEDICAL | | | | | | CENTER - | | | | | | LABORATORY | | + + + + + + | Anion Gap | 11.0 | 6.0 - 17.0 | [facility] | | | | | | [facility] | | | | | | MEDICAL | | | | | | CENTER - | | | | | | LABORATORY | | + + + + + + + + | Specimen | + + | | + + + + + + + | Performing | Address | City/State/Zipcode | Phone Number | | Organization | | | | + + + + + | [facility] | [address] | [place] | [phone] | | [facility] | | [address] | | | - LABORATORY | | | | + + + + + | [facility] | [address] | [place] | | | [facility] | | [address], [facility] | | | - LABORATORY | | | | + + + + + Magnesium (04/23/2012 6:38 AM PDT) + +-------+ + + + | Component | Value | Ref Range | Performed | Pathologist | | | | | At | Signature | + +-------+ + + + | Magnesium | 2.1 | 1.8 - 2.5 mg/dL | [facility] | | | | | | [facility] | | | | | | [facility] | | | | | | C[facility] - | | | | | | LABORATORY | | + +-------+ + + + + + | Specimen | + + | | + + + + + + + | Performing | Address | City/State/Zipcode | Phone Number | | Organization | | | | + + + + + | [facility] | [address] | [place], [place] | [phone] | | [facility] | | [address] | | | - LABORATORY | | | | + + + + + | [facility] | [address] | [place], [place] | | | [facility] | | [id number] [place] [address] | | | - LABORATORY | | | | + + + + + CBC no Differential (04/23/2012 6:38 AM PDT) + + + + + + | Component | Value | Ref Range | Performed | Pathologist | | | | | At | Signature | + + + + + + | White Blood | 5.5 (A) | 4.0 - 11.0 K/uL | [facility] | | | Cells | | | [facility] | | | | | | [facility] | | | | | | CENTER - | | | | | | LABORATORY | | + + + + + + | Red Blood | 3.71 (L) | 4.30 - 5.70 | [facility] | | | Cells | | M/uL | [facility] | | | | | | [facility] | | | | | | CENTER - | | | | | | LABORATORY | | + + + + + + | Hemoglobin | 13.0 (L) | 13.5 - 18.0 | [facility] | | | | | gm/dL | [facility] | | | | | | [facility] | | | | | | CENTER - | | | | | | LABORATORY | | + + + + + + | Hematocrit | 37.8 (L) | 40.0 - 51.0 % | [facility] | | | | | | [facility] | | | | | | [facility] | | | | | | CENTER - | | | | | | LABORATORY | | + + + + + + | Erythrocyte | 101.7 (H) | 83.0 - 101.0 fL | [facility] | | | Mean | | | [facility] | | | Corpuscular | | | MEDICAL | | | Volume | | | CENTER - | | | | | | LABORATORY | | + + + + + + | Erythrocyte | 34.9 | 28.0 - 35.0 pg | [facility] | | | Mean | | | [facility] | | | Corpuscular | | | MEDICAL | | | Hemoglobin | | | CENTER - | | | | | | LABORATORY | | + + + + + + | Erythrocyte | 34.3 | 32.0 - 36.0 | [facility] | | | Mean | | g/dL | [facility] | | | Corpuscular | | | MEDICAL | | | Hemoglobin | | | CENTER - | | | | | | LABORATORY | | | Concentrati | | | | | | on | | | | | + + + + + + | % Red Blood | 15.2 (H) | <15.0 % | [facility] | | | Cell | | | [facility] | | | Distributio | | | MEDICAL | | | n Width | | | CENTER - | | | | | | LABORATORY | | + + + + + + | Platelet | 159 | 140 - 440 K/uL | [facility] | | | Count | | | [facility] | | | | | | [facility]ICAL | | | | | | CENTER - | | | | | | LABORATORY | | + + + + + + + + | Specimen | + + | | + + + + + + + | Performing | Address | City/State/Zipcode | Phone Number | | Organization | | | | + + + + + | [facility] | [address] | [place], [place] | [phone] | | [facility] | | [address] | | | - LABORATORY | | | | + + + + + | [facility] | [address] | [place], [place] | | | [facility] | | [address], [facility] | | | - LABORATORY | | | | + + + + + CBC with Differential (04/22/2012 11:49 AM PDT) + + + + + + | Component | Value | Ref Range | Performed | Pathologist | | | | | At | Signature | + + + + + + | MANUAL | NO | | [facility] | | | DIFFERENTIA | | | [facility] | | | L ? | | | MEDICAL | | | | | | CENTER - | | | | | | LABORATORY | | + + + + + + | White Blood | 6.4 | 4.0 - 11.0 K/uL | [facility] | | | Cells | | | [facility] | | | | | | MEDICAL | | | | | | CENTER - | | | | | | LABORATORY | | + + + + + + | Red Blood | 3.77 (L) | 4.30 - 5.70 | [facility] | | | Cells | | M/uL | [facility] | | | | | | MEDICAL | | | | | | CENTER - | | | | | | LABORATORY | | + + + + + + | Hemoglobin | 13.1 (L) | 13.5 - 18.0 | [facility] | | | | | gm/dL | [facility] | | | | | | MEDICAL | | | | | | CENTER - | | | | | | LABORATORY | | + + + + + + | Hematocrit | 37.8 (L) | 40.0 - 51.0 % | [facility] | | | | | | [facility] | | | | | | MEDICAL | | | | | | CENTER - | | | | | | LABORATORY | | + + + + + + | Erythrocyte | 100.3 | 83.0 - 101.0 fL | [facility] | | | Mean | | | [facility] | | | Corpuscular | | | MEDICAL | | | Volume | | | CENTER - | | | | | | LABORATORY | | + + + + + + | Erythrocyte | 34.7 | 28.0 - 35.0 pg | [facility] | | | Mean | | | [facility] | | | Corpuscular | | | MEDICAL | | | Hemoglobin | | | CENTER - | | | | | | LABORATORY | | + + + + + + | Erythrocyte | 34.6 | 32.0 - 36.0 | [facility] | | | Mean | | g/dL | [facility] | | | Corpuscular | | | MEDICAL | | | Hemoglobin | | | CENTER - | | | | | | LABORATORY | | | Concentrati | | | | | | on | | | | | + + + + + + | % Red Blood | 15.1 (H) | <15.0 % | [facility] | | | Cell | | | [facility] | | | Distributio | | | MEDICAL | | | n Width | | | CENTER - | | | | | | LABORATORY | | + + + + + + | Platelet | 151 | 140 - 440 K/uL | [facility] | | | Count | | | [facility] | | | | | | MEDICAL | | | | | | CENTER - | | | | | | LABORATORY | | + + + + + + | % | 63.1 | 45 - 75 % | [facility] | | | Neutrophils | | | [facility] | | | | | | MEDICAL | | | | | | CENTER - | | | | | | LABORATORY | | + + + + + + | % | 14.2 (L) | 20 - 45 % | [facility] | | | Lymphocytes | | | [facility] | | | | | | MEDICAL | | | | | | CENTER - | | | | | | LABORATORY | | + + + + + + | % Monocytes | 16.8 (H) | 4 - 12 % | [facility] | | | | | | [facility] | | | | | | [facility]ICAL | | | | | | CENTER - | | | | | | LABORATORY | | + + + + + + | % | 5.2 (H) | 0 - 5 % | [facility] | | | Eosinophils | | | [facility] | | | | | | MEDICAL | | | | | | CENTER - | | | | | | LABORATORY | | + + + + + + | % Basophils | 0.7 | 0 - 1 % | [facility] | | | | | [facility] | | | | | [facility] | | | | | | CENTER - | | | | | | LABORATORY | | + + + + + + | Absolute | 4.0 | 1.5 - 6.6 K/uL | [facility] | | | Neutrophils | | | [facility] | | | | | | MEDICAL | | | | | | CENTER - | | | | | | LABORATORY | | + + + + + + | Absolute | 0.9 | 0.6 - 3.2 K/uL | [facility] | | | Lymphocytes | | | [facility] | | | | | | MEDICAL | | | | | | CENTER - | | | | | | LABORATORY | | + + + + + + | Absolute | 1.1 (H) | 0.0 - 1.0 K/uL | [facility] | | | Monocytes | | | [facility] | | | | | | MEDICAL | | | | | | CENTER - | | | | | | LABORATORY | | + + + + + + | Absolute | 0.3 | 0.0 - 0.4 K/uL | [facility] | | | Eosinophils | | | [facility] | | | | | | MEDICAL | | | | | | CENTER - | | | | | | LABORATORY | | + + + + + + | Absolute | 0.0 | 0.0 - 0.1 K/uL | [facility] | | | Basophils | | | [facility] | | | | | | MEDICAL | | | | | | CENTER - | | | | | | LABORATORY | | + + + + + + + + | Specimen | + + | | + + + + + + + | Performing | Address | City/State/Zipcode | Phone Number | | Organization | | | | + + + + + | [facility] | [address] | [place] | [phone] | | [facility] | | [address] | | | - LABORATORY | | | | + + + + + | [facility] | [address] | [place] | | | [facility] | | [id number] | | | - LABORATORY | | | | + + + + + Ammonia (04/22/2012 11:49 AM PDT) + +--------+ + + + | Component | Value | Ref Range | Performed | Pathologist | | | | | At | Signature | + +--------+ + + + | Ammonia | 39 (H) | 11 - 35 umol/L | [facility] | | | | | | [facility] | | | | | | [facility]ICAL | | | | | | CENTER - | | | | | | LABORATORY | | + +--------+ + + + + + | Specimen | + + | | + + + + + + + | Performing | Address | City/State/Zipcode | Phone Number | | Organization | | | | + + + + + | [facility] | [address] | [place], [place] | [phone] | | [facility] | | [address] | | | - LABORATORY | | | | + + + + + | [facility] | [address] | [place], [place] | | | [facility] | | [address] | | | - LABORATORY | | | | + + + + + Comprehensive Metabolic Panel (04/22/2012 11:49 AM PDT) + + + + + + | Component | Value | Ref Range | Performed | Pathologist | | | | | At | Signature | + + + + + + | Glucose | 113 (H) | 70 - 109 mg/dL | [facility] | | | | | | [facility] | | | | | | MEDICAL | | | | | | CENTER - | | | | | | LABORATORY | | + + + + + + | Calcium | 8.8 | 8.3 - 10.5 | [facility] | | | | | mg/dL | [facility] | | | | | | MEDICAL | | | | | | CENTER - | | | | | | LABORATORY | | + + + + + + | Alkaline | 99 | 40 - 110 IU/L | [facility] | | | Phosphatase | | | [facility] | | | | | | MEDICAL | | | | | | CENTER - | | | | | | LABORATORY | | + + + + + + | AST | 176 (H) | 10 - 42 IU/L | [facility] | | | | | | [facility] | | | | | | MEDICAL | | | | | | CENTER - | | | | | | LABORATORY | | + + + + + + | ALT | 82 (H) | 6 - 45 IU/L | [facility] | | | | | | [facility] | | | [facility] | | MEDICAL | | | | | | CENTER - | | | | | | LABORATORY | | + + + + + + | Bilirubin | 0.9 | 0.2 - 1.0 mg/dL | [facility] | | | Total | | | [facility] | | | | | | MEDICAL | | | | | | CENTER - | | | | | | LABORATORY | | + + + + + + | Total | 7.1 | 6.0 - 7.8 gm/dL | [facility] | | | Protein | | | [facility] | | | | | | MEDICAL | | | | | | CENTER - | | | | | | LABORATORY | | + + + + + + | Albumin | 3.2 | 3.2 - 5.0 gm/dL | [facility] | | | | | | [facility] | | | | | | [facility]ICAL | | | | | | CENTER - | | | | | | LABORATORY | | + + + + + + | BUN | 5 (L) | 7 - 18 mg/dL | [facility] | | | | | | [facility] | | | | | | MEDICAL | | | | | | CENTER - | | | | | | LABORATORY | | + + + + + + | Creatinine | 0.67 | 0.60 - 1.30 | [facility] | | | | | mg/dL | [facility] | | | | | | MEDICAL | | | | | | CENTER - | | | | | | LABORATORY | | + + + + + + | Estimated | >60Comment: For | >60 mL/min/A | [facility] | | | GFR | -Americans, | | [facility] | | | | please multiply the | | MEDICAL | | | | result by 1.210 | | CENTER - | | | | This is an estimated | | LABORATORY | | | | GFR and is based on a | | | | | | standard adult | | | | | | body mass (A=1.73m2) and | | | | | | serum creatinine | | | | + + + + + + | BUN/Creatin | 7.5 (L) | 12 - 20 | [facility] | | | ine Ratio | | | [facility] | | | | | | MEDICAL | | | | | | CENTER - | | | | | | LABORATORY | | + + + + + + | Na | 129 (L) | 136 - 149 mEq/L | [facility] | | | | | | [facility] | | | | | | MEDICAL | | | | | | CENTER - | | | | | | LABORATORY | | + + + + + + | K | 3.3 (L) | 3.5 - 5.1 mEq/l | [facility] | | | | | | [facility] | | | | | | MEDICAL | | | | | | CENTER - | | | | | | LABORATORY | | + + + + + + | Cl | 98 | 98 - 109 mEq/l | [facility] | | | | | | [facility] | | | | | | MEDICAL | | | | | | CENTER - | | | | | | LABORATORY | | + + + + + + | CO2 | 22 (L) | 24 - 31 mEq/L | [facility] | | | | | | [facility] | | | | | | MEDICAL | | | | | | CENTER - | | | | | | LABORATORY | | + + + + + + | Anion Gap | 12.3 | 6.0 - 17.0 | [facility] | | | | | | [facility] | | | | | | MEDICAL | | | | | | CENTER - | | | | | | LABORATORY | | + + + + + + + + | Specimen | + + | | + + + + + + + | Performing | Address | City/State/Zipcode | Phone Number | | Organization | | | | + + + + + | [facility] | [address] | [place] | [phone] | | [facility] | | [address] | | | - LABORATORY | | | | + + + + + | [facility] | [address] | [place] | | | [facility] | | [address], [facility] | | | - LABORATORY | | | | + + + + + Lipase (04/22/2012 11:49 AM PDT) + +-------+ + + + | Component | Value | Ref Range | Performed | Pathologist | | | | | At | Signature | + +-------+ + + + | Lipase | 41 | 0 - 60 U/L | [facility] | | | | | | [facility] | | | | | | MEDICAL | | | | | | CENTER - | | | | | | LABORATORY | | + +-------+ + + + + + | Specimen | + + | | + + + + + + + | Performing | Address | City/State/Zipcode | Phone Number | | Organization | | | | + + + + + | [facility] | [address] | [place] | [phone] | | [facility] | | [address] | | | - LABORATORY | | | | + + + + + | [facility] | [address] | [place] | | | [facility] | | [address] | | | - LABORATORY | | | | + + + + + CK Total (04/22/2012 11:49 AM PDT) + +---------+ + + + | Component | Value | Ref Range | Performed | Pathologist | | | | | At | Signature | + +---------+ + + + | CK TOTAL | 295 (H) | 22 - 269 IU/L | [facility] | | | | | | [facility] | | | | | | MEDICAL | | | | | | CENTER - | | | | | | LABORATORY | | + +---------+ + + + + + | Specimen | + + | | + + + + + + + | Performing | Address | City/State/Zipcode | Phone Number | | Organization | | | | + + + + + | [facility] | [address] | [place], [place] | [phone] | | [facility] | | [address] | | | - LABORATORY | | | | + + + + + | [facility] | [address] | [place], [place] | | | [facility] | | [address], [facility] | | | - LABORATORY | | | | + + + + + Magnesium (04/22/2012 11:49 AM PDT) + +---------+ + + + | Component | Value | Ref Range | Performed | Pathologist | | | | | At | Signature | + +---------+ + + + | Magnesium | 1.6 (L) | 1.8 - 2.5 mg/dL | [facility] | | | | | | [facility] | | | | | | [facility]ICAL | | | | | | CENTER - | | | | | | LABORATORY | | + +---------+ + + + + + | Specimen | + + | | + + + + + + + | Performing | Address | City/State/Zipcode | Phone Number | | Organization | | | | + + + + + | [facility] | [address] | [place] | [phone] | | [facility] | | [address] | | | - LABORATORY | | | | + + + + + | [facility] | [address] | [place] | | | [facility] | | [id number] | | | - LABORATORY | | | | + + + + + documented in this encounter Visit Diagnoses Not on filedocumented in this encounter
--- NOTE | 2020-01-31 14:07 | NUR ---
PT TO FLOOR WITH PUBLICATION EDITOR DAVID AND SISTER OLIVIER. PT DROWSY AND HAD TO BE MOVED TO BED. ABLE TO ROLL SELF OVER. PT EXTREMELY JAUNDICE. CURRENTLY HAS PRBC RUNNING AT 250ML\HR. PT MUMBLING IN SLEEP.
--- NOTE | 2020-01-31 15:00 | NUR ---
PT ADMITTED FROM ER. PT DROWSY, BUT AROUSABLE TO VOICE, DISORIENTED TO KELLI. PT WITH HX OF ETOH, CIWA SCORE OF 9. BLOOD UNIT COMPLETED. VSS. PT ON ROOM AIR, LUNG SOUNDS CLEAR, DENIES SOB. PT DENIES PAIN. BOWEL TONES HYPOACTIVE, ABD DISTENDED AND FIRM. CMS INTACT, TRACE EDEMA TO BLE. SISTER AT BEDSIDE, ASSISTED WITH HX.
--- NOTE | 2020-01-31 15:26 | NUR ---
BLOOD TRANSFUSION 1 OF 2 STARTED IN ER. COMPLETED AT 1450. NO S/S OF TRANSFUSION REACTION.
--- NOTE | 2020-01-31 16:37 | NUR ---
CALL LIGHT ANSWERED. PATIENT RESTING IN BED. VISITOR IN ROOM. PATIENT INCONTINENT OF URINE AND BM. PATIENT USES THE BASE COMMODE. TWO PERSON ASSISTING. LINENS CHANGED. GOWN AND ADULT PULL UP CHANGED. PATIENT BACKS TO BED. CALL LIGHT WITHIN REACH. NO OTHER NEEDS AT THIS TIME
--- NOTE | 2020-01-31 16:58 | NUR ---
Met with pt and his sister, Maria L, in pt's room. Pt is sedated from lorazepam, but opens eyes and is able to answer minimal questions. Pt lives in a trailer house in [place]. He does not have any DME. Sister is concerned as pt had a GI bleed and she does not feel he is safe and will need DME. Pt and sister agree pt needs hospice and pt reported to Dr Hastings he wants DNR/DNI. I also asked pt, and he states yes. Discussed with sister I will request a referral from Dr. Hastings for Hospice. Options for Hospice given of [facility] or [facility] and she would like [facility] in [place]. Pt states need to void and aids to room to assist pt to commode. Maria L and I step out, is in the sweeney and verbal order for Hospice. Further discussion with Dr. Hastings, Maria L, and myself about Hospice. Questions answered. Referral sent to [facility] by scan as their office is closed. Face sheet, ER notes, H&P, labs scanned.
--- NOTE | 2020-01-31 17:29 | NUR ---
PATIENT RESTING IN BED. RN IN ROOM. PATIENT USES THE BASE COMMODE. TWO PERSON ASSISTING. PATIENT BACKS TO BED. I&O DONE. VITAL SIGNS DONE BY RN. CALL LIGHT WITHIN REACH. NO OTHER NEEDS AT THIS TIME
--- NOTE | 2020-01-31 17:43 | NUR ---
MED REC COMPLETE
--- NOTE | 2020-01-31 18:21 | NUR ---
FRESH FROZEN PLASMA UN IT 2 OF 2 STARTED, PT VERIFIED WITH SECOND RN. VSS. PT WITHOUT S/S OF REACTION. RN REMAINED WIUTH PT FOR 15 MINUTES PER POLICY.
--- NOTE | 2020-01-31 18:30 | NUR ---
PT ADMITTED FROM ER FOR END STAGE LIVER DISEASE. PT WITH BLOOD IN STOOL. PT RECEIVED 1 UNIT PRBC AND 2 UNITS FFP, HAS ONE REMAINING UNIT OF PRBC TO RECEIVE. PT WITH HX OF ETOH, CIWA 8-9, GIVEN ATIVAN, BEER AT BEDSIDE. PT 2 MAX ASSIST TO STAND PIVOT TO BSC.
--- NOTE | 2020-01-31 19:30 | NUR ---
REPORT RECEIVED FROM DAY SHIFT RN. PT LYING IN BED, DROWSY BUT RESPONDS TO VERBAL STIMULI. PT ABLE TO FOLLOW COMMANDS. INCONTINENT OF TARRY LIQUID STOOL. LAURI CARE DONE. PT EXCORIATED IN GROIN AREA. WOUND NOTED ON GLUTEAL FOLD. BARRIER CREAM APPLIED. FFP INFUSING PER ORDER. BED ALARM IN PLACE. CALL LIGHT IN REACH.
--- NOTE | 2020-01-31 20:12 | EKG ---
[facility] [address] [facility] [place] [address] Signed Normal sinus rhythm Nonspecific intraventricular conduction delay Borderline ECG When compared with ECG of 03-AUG-2019 17:50, QRS duration has increased T wave amplitude has decreased in Lateral leads Confirmed by HOANG GARZON MD ([id number]) on 01/31/2020 8:12:02 PM Electronically Signed By: HOANG GARZON MD 01/31/202011 PATIENT NAME: PITERHUSEYIN [facility] Electrocardiogram DATE OF : 68 PHYSICIAN: HOANG GARZON MD REPORT #: [id number] REPORT IS CONFIDENTIAL AND NOT TO BE RELEASED WITHOUT AUTHORIZATION
--- NOTE | 2020-01-31 20:27 | NUR ---
PT UP TO BSC WITH 2 PERSON MAX ASSIST TO HAVE BLOODY STOOL. LAURI CARE DONE BY STAFF. NEW ATTENDS PLACED. BACK TO BED, NINA FAIR. PT ABLE TO TAKE A FEW SIPS OF BEER. DENIES HALLUCINATIONS OR HEAD ACHE. ORIENTED TO SELF ONLY. BED ALARM IN PLACE.
--- NOTE | 2020-01-31 21:15 | NUR ---
PLASMA INFUSION COMPLETE. PT MOSTLY SLEEPY, WOKE WITH VS, REQUESTED A BATHROOM. ABLE TO USE URINAL WITH HELP, WHILE IN BED. ASKED WHAT BUILDING HE WAS IN. WASN'T AWARE HE WAS IN THE HOSPITAL. COLD BEER OFFERED, AND NEEDED HELP HOLDING THE CUP, THIS NURSE WAS CONCERNED HE WAS GOING TO DROP IT. SEVERAL DRINKS BEER GIVEN.
--- NOTE | 2020-01-31 22:40 | NUR ---
2 OF 2 UNITS PRBC'S INFUSING. NO S/SX OF TRANSFUSION REACTION. PT RESTING QUIETLY WITH EYES CLOSED. OCCASIONAL ITCHING NOTED.
--- NOTE | 2020-01-31 23:10 | NUR ---
PT INCONTINENT OF URINE AND BLACK LIQUID STOOL. LAURI CARE DONE. FRESH ATTENDS PLACED. BARRIER CREAM APPLIED. PT COOPERATIVE WITH CARES. MILD TREMORS AND ITCHING NOTED. SIPS OF BEER GIVEN. PT REPOSITIONED IN BED. BED ALARM ON.
--- NOTE | 2020-02-01 01:10 | NUR ---
BLOOD TRANSFUSION COMPLETE. PT NINA WELL. VSS. PT RESTING WITH EYES CLOSED. RESPIRATIONS EVEN AND UNLABORED. LUNG SOUNDS CLEAR. DIM IN BASES.
--- NOTE | 2020-02-01 01:57 | NUR ---
PT RESTING IN BED WITH EYES CLOSED, NAD. CIWA SCORE 1. BED ALARM ON.
--- NOTE | 2020-02-01 04:10 | NUR ---
ASSESSMENT COMPLETE. PT ORIENTED TO SELF ONLY. CIWA SCORE 5 WHEN AWAKENED FOR CARES. INCONTINENT OF URINE AND BLACK LIQ STOOL. LAURI CARE DONE. BARRIER CREAM APPLIED. FRESH BRIEF PLACED. PT DENIES PAIN EXCEPT WHEN "WIPING MY SORES". NO NAUSEA REPORTED. SIPS OF BEER PROVIDED. CALL LIGHT IN REACH. BED ALARM ON.
--- NOTE | 2020-02-01 06:26 | NUR ---
VS AND I&O COMPLETE. PT DROWSY BUT AWAKENS TO VERBAL STIMULI. ABLE TO FOLLOW COMMANDS. DENIES PAIN OR NAUSEA. CIWA SCORE 4. ATTENDS CLEAN AND DRY. REPOSITIONED IN BED. PT DENIES NEEDS. BED ALARM ON.
--- NOTE | 2020-02-01 06:58 | NUR ---
BLOOD GLUCOSE NOTED TO BE 58 FROM MORNING LABS. 250 ML ORANGE JUICE GIVEN.
--- NOTE | 2020-02-01 07:00 | NUR ---
BEDSIDE HANDOFF REPORT RECEIVED FROM LABOR UTILIZATION SUPERINTENDENT RN. PT SLEEPING, LEFT UNDISTURBED, BED ALARM ON.
--- NOTE | 2020-02-01 08:00 | NUR ---
PATIENT WAS IN BED. AMBULATED TO COMMODE WITH 2 ASSIST AND FWW. PROVIDED LAURI CARE. AMBULATED TO CHAIR. PUT CHAIR ALARM. GAVE NEW GOWN AND FRESH WATER. CALL LIGHT WITH IN REACH. NO FURTHER NEEDS AT THIS TIME.
--- NOTE | 2020-02-01 08:30 | NUR ---
PT SITTING IN CHAIR. PT ON ROOM AIR, LUNG SOUNS CLEAR. PT MORE ALERT, DISORIENTED TO DATE. CIWA SCORE 7. PT DENIES PAIN. PT WITH 1+ EDEMA TO BLE, CMS INTACT. IV SALINE LOCKD. PT TOLERATING CLEAR LIQUID DIET, DENIES NAUSEA, BOWEL TONES ACTIVE. MORNING MEDICATIONS ADMINISTED. PT DENIES OTHER NEEDS AT THIS TIME.
--- NOTE | 2020-02-01 10:00 | NUR ---
PT 1-2 PA TO BSC, VOIDED AND HAD BM. PT ASSISTED TO SHOWER CHAIR FOR SHOWER, NURSE AIDES ASSISTING HIM.
--- NOTE | 2020-02-01 10:29 | NUR ---
PATIENT SITTING UP IN CHAIR. PATIENT USES THE BASE COMMODE. TWO PERSON ASSISTING WITH WALKER. PATIENT TAKES A SHOWER. PATIENT BACKS TO CHAIR. TWO PERSON ASSISTING. PATIENT USING A CLEAN GOWN AND ADULT PULL UP. CHAIR ALARM ON. CALL LIGHT WITHIN REACH. NO OTHER NEEDS AT THIS TIME
--- NOTE | 2020-02-01 10:30 | NUR ---
Checked on pt. He is sleeping. I have not received return call from Hospice, will call and fu this am about referral sent last night.
--- NOTE | 2020-02-01 10:45 | NUR ---
SISTER OLIVIER CALLED FOR UPDATE, UPDATE PROVIDED, PLANS TO BE AT HOSPITAL AROUND LUNCH AND WOULD LIKE TO TALK WITH CASE MANAGEMENT.
--- NOTE | 2020-02-01 11:20 | NUR ---
Called and spoke with Gerri from [facility]. She recieved my referral and is waiting for confirmation from their MD. She let me know, their RN will be in [place] this afternoon and available to speak with the family. Called Neptali's sister and updated, she would like to have a family meeting and meet with Hospice at 4 pm. Called and confirmed with Gerri, she will notify Emma, Acoustic Sensor Operator.
--- NOTE | 2020-02-01 11:29 | NUR ---
PATIENT SITTING UP IN CHAIR. PATIENT USES THE BASE COMMODE. TWO PERSON ASSITING WITH WALKER. PERICARE PERFOMED. PATIENT BACKS TO CHAIR. CHAIR ALARM ON. CALL LIGHT WITHIN REACH. NO OTHER NEEDS AT THIS TIME
--- NOTE | 2020-02-01 14:12 | NUR ---
PT SITTING ON CHAIR. CIWA ASSESSMENT SCORE 7. NO ACUTE CHANGES. SISTER AT BEDSIDE, REQUESTING TO SPEAK WITH CASE MANAGEMENT. PT DENIES OTHER NEEDS AT THIS TIME.
--- NOTE | 2020-02-01 15:10 | NUR ---
DESITIN CREAM APPLIED LIBERALLY TO BUTTOCK AND LEG WOUNDS. SISTER AT BEDSIDE, UPDATED ON WOUND CARE CONSULT RECOMMENDATIONS.
--- NOTE | 2020-02-01 15:31 | NUR ---
2PA PATIENT FROM CHAIR TO BSC WITH ATILIO PARIKH. CHANGED BRIEF AND GOWN. RN REFILLED ICE BUCKET. CALL LIGHT IN REACH
--- NOTE | 2020-02-01 16:00 | NUR ---
Emma TOBIN her to have a conference with the family. Four family members present and pt is awake. I was unable to attend the meeting.
--- NOTE | 2020-02-01 16:44 | NUR ---
ORDER RECEIVED FOR WOUND CONSULT. EMR REVIEWED. PATIENT IS SITTING IN THE RECLINER UPON MY ARRIVAL. PATIENT IS TRANSFERRED TO THE BED USING HIS FWW AND 2 RN. PATIENT TOLERATES THIS TRANSFER WELL. PATIENT IS LYING ON HIS LEFT SIDE. INCONTINENCE BRIEF IS REMOVED. LINEAR, FULL THICKNESS SKIN BREAKDOWN IS NOTED TO BILATERAL BUTTOCKS AND BILATERAL INNER THIGHS. CENTERS OF THE WOUNDS APPEAR YELLOW AND MOIST. PATIENT REPORTS PAIN IN THIS AREA AND STATES THAT IT "BOWER." RECOMMEND NOT USING ANY ADHESIVE ON THIS AREA OF SKIN BREAKDOWN, LIBERAL FREQUENT DESITIN APPLICATION AND NO BRIEF WHILE IN BED. REPORT GIVEN TO ATILIO PARIKH.
--- NOTE | 2020-02-01 18:05 | NUR ---
PT MORE ALERT TODAY. CIWA SCORE 7 THROUGHOUT SHIFT. PT ON ROOM AIR, LUNG SOUNDS CLEAR. PT DENIED PAIN. WOUND CARE CONSULT COMPLETED, RECOMMENDED DESITIN AND NOT USING ATTENDS. PT 2PA TO BSC, INCONTINENT AT TIMES. HOSPICE CAME TO MEET WITH FAMILY. PLAN FOR DC TO HOSPICE.
--- NOTE | 2020-02-01 19:45 | NUR ---
PT CALLING, INCONTINENT OF URINE AND LIQUID BOWEL OVER FLOOR AND GOWN AND CHAIR. GOWN CHANGED, CLEAN PADS IN CHAIR, DESITING APPLIED TO RAW AREAS BETWEEN BUTTOCKS AND L INNER UPPER THIGH AREA. CALL FERNANDO LEVY AND JENNA AT BEDSIDE,
--- NOTE | 2020-02-01 21:10 | NUR ---
PT INCONTINENT OF URINE AND LIQUID SMALL AMOUNTS OF BM ALL OVER CHAIR, BED AND FLOOR. " I TRIED TO GO TO THE BR". BED ALARM IN FLOOR. PT INSTRUCTED ON SAFETY AND WHY OF CHAIR ALARM, SEMIRECEPTIVE. DRINKING HIS BEER. LINEN AND GOWN CHANGED, SKIN CARE DONE, DESITING TO RAW AREA BETWEEN BUTTOCKS AND LAURI AREA L INNER UPPER THIGH. BACK TO CHAIR, SEMI RECEPTIVE, PLEASANT. CALL LIGHT, FLUIDS AND BEER AT BEDSIDE. INSTRUCTED VERBALLY AGAIN ON USE OF CALL LIGHT. STATED UNDERSTANDING
--- NOTE | 2020-02-01 21:55 | NUR ---
CHAIR ALARM GOING OFF, PT STANDING UP, INCONTINENT OF URINE AND LIQUID BM ALL OVER CHAIR, FLOOR. SKIN CARE DONE, CLEAN GOWN, DESITING TO BUTTOCKS AND PERIAREA. SLOW RESPONSE, REQUIRED SEVERAL CUES. BACK TO CHAIR, BED ALARM IN PLACE
--- NOTE | 2020-02-01 22:22 | NUR ---
UP WALKING IN ROOM, TOOK CHAIR ALARM OFF, INCONTINENT OF DARK URINE AND LIQUID BM. VERY RAW LEFT THGIH AND BUTTOCKS, OPEN AREAS PRESENT. DESITIN APPLIED AGAIN. pT HAS DRANK ALL 4 BEERS AT THIS TIME. PT HAS SLOW RESPONSE AND SEMI RECEPTIVE TO INSTRUCTIONS, SKIN CARE DONE, NO ATTENDS PER INSTRUCTIONS, VERY JAUNDICED SKIN. [address], PT IN ROOM AIR. GOWN AND CHAIR AND BED LINEN CHANGED
--- NOTE | 2020-02-01 22:52 | NUR ---
PATIENT RESTING IN BEDSIDE RECLINER. CALL LIGHT IN REACH. NO FURTHER NEEDS AT THIS TIME.
--- NOTE | 2020-02-02 02:11 | NUR ---
RESTING IN CHAIR, EYES CLOSED, NO RESP DISTRESS, ON ROOM AIR, SKIN VERY JAUNDICED, CALL LIGHT AT HANDS REACH
--- NOTE | 2020-02-02 05:30 | NUR ---
RESTING, NO FURTHER INCONTINENT OF URINE OR BOWEL, HAS BEEN SLEEPING IN CHAIR, LEG ELEVATED, CONTINUES TO BE JAUNDICED, TOLERATING FLUIDS WELL
--- NOTE | 2020-02-02 06:39 | NUR ---
Pt initial CIWA was 7, jaundiced skin and sclera, incontinent of multiple liquid bm's and urine. Desitin applied to open red areas in buttocks , L upper inner hip and r tracy area. Pt slow response, semireceptive to instructions. Has slept in the chair, drank 4 beers this shift in less than 2 hrs. 2 sl patent. tolerating diet well, no emesis. takes chair alarm off, pt is to be dc on comfort care to home today
--- NOTE | 2020-02-02 06:44 | NUR ---
PATIENT SLEEPING SOUNDLY IN BEDSIDE RECLINER, CALL LIGHT IN REACH. RN RIVKA REQUESTED VITALS NOT BE TAKEN AT THIS TIME TO ALLOW PATIENT TO REST.
--- NOTE | 2020-02-02 07:51 | NUR ---
7530: Report received from Evelyn TRIMBLE. Pt resting in his chair and is ordering breakfast at this time, he denies any needs at this time. Call alston within reach.
--- NOTE | 2020-02-02 08:20 | NUR ---
Attempted to call hospice to confirm admission date and time. Office not open.
--- NOTE | 2020-02-02 09:10 | NUR ---
Received call from Gerri TOBIN. They are unable to admit today. They are awaiting a call from family to let them know where pt will be staying. They also need to have DME delivered today as they are unable to deliver tomorrow. I will contact Maria L and [place].
--- NOTE | 2020-02-02 09:30 | NUR ---
Spoke with Maria L, they can accept equipment this afternoon. Updated Hospice can admit tomorrow at 12n. Let her know Gerri from hospice will give the [employer] company her Maria L's number for delivery of equipment this afternoon. Spoke with Neptali. He states he had a rough morning with diarrhea. He is eating breakfast. Maria L in room and pt. listened to the above conversation.
--- NOTE | 2020-02-02 10:00 | NUR ---
PT RESTING IN HIS CHAIR VISITING WITH HIS SISTER (OLIVIER). SHE STATES THAT THE PT SEEMS MORE CLEAR TODAY THAN HE WAS YESTERDAY. HIS IS VERY JANDICE IN COLOR AT THIS TIME. LACTULOSE GIVEN ORDERED, THE PT HAS ALREADY HAD A BM TODAY. HIS CHAIR ALARM IS ON AND THE PLAN PER ANDRES TRIMBLE IS FOR THE PT TO DC TO HOME TOMORROW WITH HOSPICE. BP IS 96/54 WHICH IS NORMAL FOR HIM, HE DENIES ANY FEELING DIZZY OR ANY OTHER PROBLEMS AT THIS TIME. SEE ASSESSMENT.
--- NOTE | 2020-02-02 12:34 | NUR ---
CHAIR ALARM GOING OFF, PT FOUND TO BE INCONTENT OF URINE, UP TO THE BATHROOM AND THEN CLEANED UP AND BACK TO THE CHAIR. CHAIR ALARM ON AND CALL LIGHT WITHIN REACH.
--- NOTE | 2020-02-02 13:44 | NUR ---
PT SLEEPING AND AWAKES TO VOICE. HE DENIES ANY PROBLEMS AT ALL, ASSESSMENT COMPLETED AND HE QUICKLY FALLS BACK TO SLEEP. HE HAS BEER AT THE BEDSIDE WITH ONE OPEN WHICH IS ABOUT 50% GONE AND ONE FULL ONE. SEE CIWA. NO NOTED CHANGES IN HIS STATUS OTHER HYDE, SEE ASSESSMENT.
--- NOTE | 2020-02-02 15:09 | NUR ---
PT HAD A MODERATE SIZED LOOSE STOOL WITH A MODERATE TO LARGE AMOUNT OF BRIGHT RED BLOOD NOTED. BP 100/57, HR 83, 98% SAT [address] LENTZ CALLED AND NOTIFIED[address] CONDOM CATH PLACED DUE TO THE PT BEING INCONT OF URINE AND HIS LARGE AMOUNT OF EXCORATION IN HIS LAUIR-AREA.
--- NOTE | 2020-02-02 17:27 | NUR ---
PT MOVED TO ROOM 121 TO BE CLOSER TO THE NURSING STATION. HE APPEARS COMFORTABLE AND DENIES ANY PAIN OR OTHER PROBLEMS. PT NOTED TO NOT HAVE HIS CONDOM CATH IN PLACE ANY LONGER.
--- NOTE | 2020-02-02 20:54 | NUR ---
chair alarm tossed to floor by pt, not receptive to information. slow rsponse, semi cooperative. has had 3 incontinence of joe colored urine and 3 loose strong smelling semiliquid bms, gown and chair linen changed. skin care done, desitin applied to butocks and both inner upper thights open red areas. no attends as per orders, chux in chair. call light and walker at chair side. received 1dose of 40mEq of K as per orders, 2 SL patent. Skin and sclera very jaundiced. ascitic abd, edematous le, elevated when in chair, CIWA 6.
--- NOTE | 2020-02-02 20:54 | NUR ---
VITALS DONE AND CHARTED. WIPED UP SOME URINE UNDER PT'S CHAIR. BEDSIDE TABLE AND CALL LIGHT IN REACH.
--- NOTE | 2020-02-02 23:18 | NUR ---
HELPED PT GET TO THE BSC WITH HIS FWW. CLEANED PT UP , PUT DESITIN ON. NEW GOWN AND ATTENDS PUT ON. CLEANED UP HIS CHAIR AND FLOOR WITH CLEANING WIPES. CLEANED HIS FWW. WIPED DOWN HIS REMOTE. NEW SOCKS PUT ON. HELPED HIM BACK TO THE BED WITH HIS FWW. BEDSIDE TABLE AND CALL LIGHT IN REACH.
--- NOTE | 2020-02-03 02:23 | NUR ---
PT REASTING, EYES CLOSED, RESTING IN CHAIR, NO S/SX DISTRESS CONTINUE STO BE VERY JAUNDICED, CONTINUES TO BE INCONTINENT OF BOWEL AND BLADDER. CALL LIGHT AT BEDSIDE,
--- NOTE | 2020-02-03 02:48 | NUR ---
WITH THE HELP OF ATILIO MERLOS WE HELPED PT TO THE BSC WITH HIS FWW. CLEANED THE FLOOR, NEW ATTENDS AND NEW SOCKS PUT ON WELL. WITH THE HELP OF ATILIO TINEO WE GOT HIM BACK TO HIS CHAIR WITH HIS FWW. HE WAS VERY UNSTEADY. WARM BLANKET GIVEN WELL TWO PILLOWS FOR HIS COMFORT. CHAIR ALARM SET. BEDSIDE TABLE AND CALL LIGHT IN REACH. PT NEEDS NOTHING MORE AT THIS TIME.
--- NOTE | 2020-02-03 04:50 | NUR ---
PT HAS SLEPT WELL THIS SHIFT, ON ROOM AIR, SKIN AND SCLERA CONTINUES TO BE VERY JAUNDICED, CONTINUES TO BE INCONTINENT BLADDER AND SMALL FREQUENT SEMILIQUID BMS, BROWN-GREEN COLORED WITH OCASSIONAL RED STREAKS NOTED WHEN WIPING. OPEN AREAS BETWEEN BUTTOCKS AND THIGHS .DESITING OINTMENT APPLIED GENEROUSLY TO BUTTOCKS AND INNER UPPER THIGH/GROING AREA ASCITIC ABDOMEN. 1-2PA/FWW DUE TO WEAKNESS AND UNSTEADINESS, SLOW RESPONSE AND REQUIRES MULTIPLE CUES, [place], PLEASANT. CIWA 6, NO S/SX WITHDRAWAL. CURRENTLY RESTING, EYES CLOSED. IN CHAIR, LEGS ELEVATED. CALL LIGHT AND FLUIDS AT HANDS REACH.2 SALINE LOCKS PATENT, FLUSHED EASILY. PT SCHEDULED TO BE DC'D TODAY TO HOME WITH HOSPICE CARE
--- NOTE | 2020-02-03 07:56 | NUR ---
0730: REPORT RECEIVED FROM RIVKA TRIMBLE. PT RESTING IN HIS CHAIR AND DENIES ANY PAIN AND IS DRINKING A BEER AT THIS TIME. CALL MASON WITHIN REACH AND CHAIR ALARM IS ON.
--- NOTE | 2020-02-03 08:10 | NUR ---
Called and spoke with Maria L to see if she plans on transporting Neptali or if they would like a wc van. She states she is getting things ready, plans on arriving at 0900 and would like to take pt. home around 11 as Hospice will arrive at 12. Pt has awc at home. Business Editor will be here prior to dc to complete some paperwork. Hospice equipment was delivered last night.
--- NOTE | 2020-02-03 09:10 | NUR ---
Dr. Hansen in to speak with Neptali. manager paid in the room. Neptali stating he is ready to go home as soon as possible.
--- NOTE | 2020-02-03 09:36 | NUR ---
PT NOT ABLE TO ANSWER WHAT HOSPITAL HE IS AT, THE YEAR OR THE MONTH CORRECTLY. HE DOES STATE THE CORRECT TOWN HIS IS IN AND IS ABLE TO ADD 3+2 CORRECTLY. HE APPEARS COMFORTABLE AND DENIES ANY PROBLEMS AT THIS TIME. HE REMAINS VERY JANDICE AND HIS PLAN TO GO HOME WITH HOSPICE TODAY. SEE ASSESSMENT FOR A FULL UPDATE.
--- NOTE | 2020-02-03 10:50 | NUR ---
Spoke with Maria L in the [place]. Neptali is dressing. She denies further needs.
== END 2020-02-03 11:30 | disposition home or self-care (01) ==
LOC: ED 09:10 → MS 09:12
PROVIDERS: ADMIT Internal Medicine
DX: K70.30 Alcoholic cirrhosis of liver without ascites (principal); K72.90 Hepatic failure, unspecified without coma; D62 Acute posthemorrhagic anemia; D68.9 Coagulation defect, unspecified
CPT/HCPCS: 36415; 36430; 76705; 80053; 81001; 82140; 83690; 83735; 85025; 85610; 86850; 86900; 86901; 86920; 86927; 93005; 93010; 94760; 96361; 96374; 96375; 96376; 99285-25; C9113; C9803; G0378; G0480; J2060; J3480; J7030; J7060; P9016; U0002